=== PATIENT | male | born 1960 | race Caucasian/White ===

== ENCOUNTER 2019-03-26 17:45 | Emergency (ER) | payer OTHER ==
[2019-03-26 18:30] VITALS: TEMP 98.2
--- NOTE | 2019-03-26 19:47 | ED ---
General Adult HPI - General Chief complaint: Back Pain/Injury Stated complaint: LEG AND FEET PAIN Time Seen by Provider: 03/26/19 19:14 Source: patient Mode of arrival: ambulatory Limitations: physical limitation - History of Present Illness Initial comments: Dictation was produced using [employer] dictation software. please excuse any gra mmatical, word or spelling errors. Chief Complaint: 58-year-old male presents with 6 months of back pain. History of Present Illness: 58-year-old male with past medical history of chronic back pain. He presents today with worsening back pain. Patient has been having back pain proximally 6 months. He states he is on his back. Those by his primary care physician. States that he had an MRI that showed severe degenerative changes. Patient reports that he could have pain into the e mergency department today. Patient had his pain medications can His PCP. He reports that instead he has been drinking a fifth of alcohol daily to help with the pain. States since he had alcohol today. Patient states the pain radiates from the back to bilateral lower mid posterior knee area. Reports that he can't function because of the pain. The ROS documented in this emergency department record has been reviewed and confirmed by me. Those systems with pertinent positive or negative responses have been documented in the HPI. All other systems are other negative and/or noncontributory. PHYSICAL EXAM: General Impression: Alert and oriented x3, not in acute distress HEENT: Normocephalic atraumatic, extra-ocular movements intact, pupils equal and reactive to light bilaterally, mucous membranes moist. Cardiovascular: Heart regular rate and rhythm, S1&S2 audible, no murmurs, rubs or gallops Chest: Lungs clear to auscultation bilaterally, no rhonchi, no wheeze, no rales Abdomen: Bowel sounds present, abdomen soft, non-tender, non-distended, no organomegaly Musculoskeletal: Pulses present and equal in all extremities, no peripheral edema Motor: no focal deficits noted Neurological: CN II-XII grossly intact, no focal motor or sensory deficits noted Skin: Intact with no visualized rashes Psych: Normal affect and mood ED course: 58-year-old male presents with acute on chronic back pain. Patient is daily EtOH drinker. Signs upon arrival shows heart rate of 1:15, worse vital signs within normal limits. Laboratory evaluation obtained. Patient has mild leukocytosis of 14.2. Patient's potassium 5.8. Patient told that his potassium is slightly elevated there is concern that this is a lab error however there is no comment made on it. Nonetheless patient given oral hydration. Patient is ambulatory at baseline with his walker. Spinal x-rays were performed showing no acute processes. There is findings of generalized spine disease. Pending urine studies. Patient otherwise feels at baseline. His pain is controlled. Chair decision making was made with patient. He is agreeable for discharge with outpatient referral to our local spine surgeon Dr. Martinez. Return parameters discussed. Patient clear for discharge. - Related Data Home Medications Medication Instructions Recorded Confirmed Furosemide [Lasix] 40 mg PO DAILY 03/26/19 03/26/19 HYDROcodone/APAP 10-325MG [[place] 1 tab PO BID 03/26/19 03/26/19 10-325] Lisinopril-Hctz 20-25 mg 1 tab PO DAILY 03/26/19 03/26/19 [Zestoretic 20-25] Pantoprazole [Protonix] 40 mg PO DAILY 03/26/19 03/26/19 Potassium Chloride ER [K-Dur 10] 10 meq PO DAILY 03/26/19 03/26/19 amLODIPine [Norvasc] 5 mg PO DAILY@1400 03/26/19 03/26/19 Allergies Allergy/AdvReac Type Severity Reaction Status Date / Time No Known Allergies Allergy Verified 03/26/19 19:02 Review of Systems ROS Statement: Those systems with pertinent positive or pertinent negative responses have been documented in the HPI. ROS Other: All systems not noted in ROS Statement are negative. Past Medical History Past Medical History: Hypertension Past Surgical History: No Surgical Hx Reported Past Psychological History: No Psychological Hx Reported Smoking Status: Current every day smoker Past Alcohol Use History: Daily Past Drug Use History: None Reported General Exam Limitations: physical limitation Course Vital Signs 03/26/19 03/26/19 18:26 21:00 Temperature 98.2 F Pulse Rate 115 H 67 Respiratory 16 18 Rate Blood Pressure 137/83 169/97 O2 Sat by Pulse 93 L 99 Oximetry Medical Decision Making - Lab Data Result diagrams: 03/26/19 20:54 03/26/19 20:14 Lab Results 03/26/19 03/26/19 Range/Units 20:14 20:54 WBC 14.2 H (3.8-10.6) k/uL RBC 4.36 (4.30-5.90) m/uL Hgb 14.0 (13.0-17.5) gm/dL Hct 42.6 (39.0-53.0) % MCV 97.9 (80.0-100.0) fL MCH 32.1 (25.0-35.0) pg MCHC 32.8 (31.0-37.0) g/dL RDW 13.7 (11.5-15.5) % Plt Count 292 (150-450) k/uL Neutrophils % 74 % Lymphocytes % 15 % Monocytes % 5 % Eosinophils % 3 % Basophils % 0 % Neutrophils # 10.6 H (1.3-7.7) k/uL Lymphocytes # 2.2 (1.0-4.8) k/uL Monocytes # 0.8 (0-1.0) k/uL Eosinophils # 0.4 (0-0.7) k/uL Basophils # 0.1 (0-0.2) k/uL Sodium 135 L (137-145) mmol/L Potassium 5.8 H (3.5-5.1) mmol/L Chloride 98 (98-107) mmol/L Carbon Dioxide 29 (22-30) mmol/L Anion Gap 8 mmol/L BUN 26 H (9-20) mg/dL Creatinine 0.66 (0.66-1.25) mg/dL Est GFR (CKD-EPI)AfAm >90 (>60 ml/min/1.73 sqM) Est GFR (CKD-EPI)NonAf >90 (>60 ml/min/1.73 sqM) Glucose 114 H (74-99) mg/dL Calcium 9.5 (8.4-10.2) mg/dL Magnesium 1.9 (1.6-2.3) mg/dL Serum Alcohol 31 mg/dL Disposition Clinical Impression: Mechanical back pain Disposition: HOME SELF-CARE Condition: Good Instructions (If sedation given, give patient instructions): Acute Low Back Pain (ED) Is patient prescribed a controlled substance at d/c from ED?: No Referrals: Seven Martinez DO [Doctor of Osteopathic Medicine] - 1-2 days Time of Disposition: 21:51
--- NOTE | 2019-03-26 20:14 | XR ---
EXAMINATION TYPE: XR lumbar spine 2 or 3V DATE OF EXAM: 03/26/2019 COMPARISON: NONE HISTORY: Back pain TECHNIQUE: 3 views FINDINGS: Vertebra have normal alignment. There is narrowing of disc spaces from L3 to S1 with mild s purring. There is vacuum disc. There is no compression fracture. Posterior elements are intact. Sacro iliac joints are intact. IMPRESSION: Multilevel spondylotic changes. No fracture.
[2019-03-26 20:31] LABS: Alcohol 31 mg/dL; Anion Gap 8 mmol/L; Blood Urea Nitrogen 26 mg/dL (9-20); Calcium 9.5 mg/dL (8.4-10.2); Carbon Dioxide 29 mmol/L (22-30); Chloride 98 mmol/L (98-107); Glucose 114 mg/dL (74-99); Magnesium 1.9 mg/dL (1.6-2.3); Potassium 5.8 mmol/L (3.5-5.1); Sodium 135 mmol/L (137-145)
[2019-03-26 20:59] LABS: Basophils # (A) 0.1 k/uL (0-0.2); Basophils % (A) 0 %; Eosinophils # (A) 0.4 k/uL (0-0.7); Eosinophils % (A) 3 %; HCT 42.6 % (39.0-53.0); Lymphocytes # (A) 2.2 k/uL (1.0-4.8); Lymphocytes % (A) 15 %; MCH 32.1 pg (25.0-35.0); MCHC 32.8 g/dL (31.0-37.0); MCV 97.9 fL (80.0-100.0); Mean Platelet Volume 7.2; Monocytes # (A) 0.8 k/uL (0-1.0); Monocytes % (A) 5 %; Neutrophils # (A) 10.6 k/uL (1.3-7.7); Neutrophils % (A) 74 %; Platelet Count 292 k/uL (150-450); RBC 4.36 m/uL (4.30-5.90); RDW 13.7 % (11.5-15.5); WBC 14.2 k/uL (3.8-10.6)
[2019-03-26 21:25] VITALS: BP 169/97; PULSE 67; RESP 18
[2019-03-26 21:55] LABS: Appearance,Urine Clear (Clear); Bilirubin,Urine Negative (Negative); Blood,Urine Negative (Negative); Color,Urine Yellow; Glucose,Urine (UA) Negative (Negative); Ketones,Urine Negative (Negative); Leukocyte Esterase,Urine Negative (Negative); Mucus,Urine Rare /hpf; Nitrite,Urine Negative (Negative); Protein,Urine 1+ (Negative); RBC,Urine <1 /hpf (0-5); Specific Gravity,Urine 1.031 (1.001-1.035); Squamous Epithelial Cell,Urine <1 /hpf (0-4); Urobilinogen,Urine <2.0 mg/dL (<2.0); WBC,Urine 1 /hpf (0-5)
== END 2019-03-26 22:20 | disposition home or self-care (01) ==
LOC: EC 17:45
DX: M54.9 Dorsalgia, unspecified (principal); I10 Essential (primary) hypertension; F17.200 Nicotine dependence, unspecified, uncomplicated; Z79.891 Long term (current) use of opiate analgesic; Z79.899 Other long term (current) drug therapy
CPT/HCPCS: 36415; 80048; 83735; 85025; 81001; 72100; 99283; G0480; 80320

== ENCOUNTER 2020-03-25 20:28 | Observation (INO) | payer OTHER ==
--- NOTE | 2020-03-25 20:38 | ED ---
General Adult HPI - General Stated complaint: Chest Pain Time Seen by Provider: 03/25/20 20:30 Source: patient, RN notes reviewed Mode of arrival: EMS Limitations: no limitations - History of Present Illness Initial comments: Patient is a pleasant 59-year-old male presenting to the emergency department complaining of fatigue and dyspnea. Symptoms have progressed over the past 3-4 days. Patient has been sleeping for majority of the days. Patient stopped all of his heart medications a couple of weeks ago. Patient is having mild chest discomfort. Patient is having palpitations. Patient does have history of atrial fibrillation. No leg pain or leg swelling. - Related Data Home Medications Medication Instructions Recorded Confirmed Furosemide [Lasix] 40 mg PO DAILY 03/26/19 03/26/19 HYDROcodone/APAP 10-325MG [[place] 1 tab PO BID 03/26/19 03/26/19 10-325] Lisinopril-Hctz 20-25 mg 1 tab PO DAILY 03/26/19 03/26/19 [Zestoretic 20-25] Pantoprazole [Protonix] 40 mg PO DAILY 03/26/19 03/26/19 Potassium Chloride ER [K-Dur 10] 10 meq PO DAILY 03/26/19 03/26/19 amLODIPine [Norvasc] 5 mg PO DAILY@1400 03/26/19 03/26/19 Allergies Allergy/AdvReac Type Severity Reaction Status Date / Time No Known Allergies Allergy Verified 03/25/20 20:39 Review of Systems ROS Statement: Those systems with pertinent positive or pertinent negative responses have been documented in the HPI. ROS Other: All systems not noted in ROS Statement are negative. Constitutional: Denies: fever Eyes: Denies: eye pain ENT: Denies: ear pain Respiratory: Reports: dyspnea. Denies: cough Cardiovascular: Reports: chest pain, palpitations Endocrine: Reports: fatigue Gastrointestinal: Denies: abdominal pain Genitourinary: Denies: dysuria Musculoskeletal: Denies: back pain Skin: Denies: rash Neurological: Denies: weakness Past Medical History Past Medical History: Hypertension Past Surgical History: No Surgical Hx Reported Past Psychological History: No Psychological Hx Reported Smoking Status: Current every day smoker Past Alcohol Use History: Daily Past Drug Use History: None Reported General Exam Limitations: no limitations General appearance: alert, in no apparent distress Head exam: Present: normocephalic Eye exam: Present: normal appearance Neck exam: Present: normal inspection Respiratory exam: Present: normal lung sounds bilaterally. Absent: chest wall tenderness Cardiovascular Exam: Present: tachycardia, irregular rhythm Expanded Peripheral pulses: 2+: Radial (R), Radial (L), Dorsalis Pedis (R), Dorsalis Pedis (L) GI/Abdominal exam: Present: soft. Absent: tenderness Extremities exam: Present: normal inspection. Absent: pedal edema, calf tenderness Neurological exam: Present: alert Psychiatric exam: Present: normal affect, normal mood Skin exam: Present: normal color Course Vital Signs 03/25/20 20:29 Temperature 98.4 F Pulse Rate 105 H Respiratory 19 Rate Blood Pressure 155/112 O2 Sat by Pulse 98 Oximetry - Reevaluation(s) Reevaluation #1: 03/25/20 20:45 Patient states he can't be on blood thinners secondary to history of bleeding problems. 03/25/20 22:06 Repeat EKG shows A. fib with rate of 96. QRS 90. QT 352. QTC 444. Normal axis. Normal QRS. No acute ST change. EKG Findings - EKG Comments: EKG Findings:: A. fib with rate of 113. QRS 92. QT 344. QTC 471. Normal axis. Normal QRS. Nonspecific T waves. Medical Decision Making - Medical Decision Making Patient reevaluated and updated. Dr. Reza has been paged for admission covering for hospital call. - Lab Data Result diagrams: 03/25/20 20:49 03/25/20 20:49 Lab Results 03/25/20 03/25/20 03/25/20 Range/Units 20:49 20:49 20:49 WBC 12.3 H (3.8-10.6) k/uL RBC 4.49 (4.30-5.90) m/uL Hgb 13.1 (13.0-17.5) gm/dL Hct 42.0 (39.0-53.0) % MCV 93.5 (80.0-100.0) fL MCH 29.1 (25.0-35.0) pg MCHC 31.1 (31.0-37.0) g/dL RDW 16.5 H (11.5-15.5) % Plt Count 291 (150-450) k/uL Neutrophils % 74 % Lymphocytes % 16 % Monocytes % 6 % Eosinophils % 2 % Basophils % 0 % Neutrophils # 9.1 H (1.3-7.7) k/uL Lymphocytes # 1.9 (1.0-4.8) k/uL Monocytes # 0.7 (0-1.0) k/uL Eosinophils # 0.3 (0-0.7) k/uL Basophils # 0.1 (0-0.2) k/uL Anisocytosis Slight PT 10.6 (9.0-12.0) sec INR 1.0 (<1.2) APTT 24.2 (22.0-30.0) sec D-Dimer 0.63 H (<0.60) mg/L FEU Sodium 135 L (137-145) mmol/L Potassium 4.2 (3.5-5.1) mmol/L Chloride 105 (98-107) mmol/L Carbon Dioxide 23 (22-30) mmol/L Anion Gap 7 mmol/L BUN 17 (9-20) mg/dL Creatinine 0.67 (0.66-1.25) mg/dL Est GFR (CKD-EPI)AfAm >90 (>60 ml/min/1.73 sqM) Est GFR (CKD-EPI)NonAf >90 (>60 ml/min/1.73 sqM) Glucose 99 (74-99) mg/dL Calcium 9.6 (8.4-10.2) mg/dL Total Bilirubin 0.5 (0.2-1.3) mg/dL AST 24 (17-59) U/L ALT 12 (4-49) U/L Alkaline Phosphatase 86 (38-126) U/L Troponin I (0.000-0.034) ng/mL NT-Pro-B Natriuret Pep pg/mL Total Protein 6.9 (6.3-8.2) g/dL Albumin 4.0 (3.5-5.0) g/dL 03/25/20 03/25/20 Range/Units 20:49 20:49 WBC (3.8-10.6) k/uL RBC (4.30-5.90) m/uL Hgb (13.0-17.5) gm/dL Hct (39.0-53.0) % MCV (80.0-100.0) fL MCH (25.0-35.0) pg MCHC (31.0-37.0) g/dL RDW (11.5-15.5) % Plt Count (150-450) k/uL Neutrophils % % Lymphocytes % % Monocytes % % Eosinophils % % Basophils % % Neutrophils # (1.3-7.7) k/uL Lymphocytes # (1.0-4.8) k/uL Monocytes # (0-1.0) k/uL Eosinophils # (0-0.7) k/uL Basophils # (0-0.2) k/uL Anisocytosis PT (9.0-12.0) sec INR (<1.2) APTT (22.0-30.0) sec D-Dimer (<0.60) mg/L FEU Sodium (137-145) mmol/L Potassium (3.5-5.1) mmol/L Chloride (98-107) mmol/L Carbon Dioxide (22-30) mmol/L Anion Gap mmol/L BUN (9-20) mg/dL Creatinine (0.66-1.25) mg/dL Est GFR (CKD-EPI)AfAm (>60 ml/min/1.73 sqM) Est GFR (CKD-EPI)NonAf (>60 ml/min/1.73 sqM) Glucose (74-99) mg/dL Calcium (8.4-10.2) mg/dL Total Bilirubin (0.2-1.3) mg/dL AST (17-59) U/L ALT (4-49) U/L Alkaline Phosphatase (38-126) U/L Troponin I <0.012 (0.000-0.034) ng/mL NT-Pro-B Natriuret Pep 736 pg/mL Total Protein (6.3-8.2) g/dL Albumin (3.5-5.0) g/dL - Radiology Data Radiology results: report reviewed (Computed tomography scan of the chest shows no evidence of pulmonary embolism. Moderate emphysema. Possible bronchitis. Nodular density lingula. Nodularity left adrenal gland.), image reviewed (Chest x-ray has subtle multifocal bibasilar opacities. Underlying COPD) Disposition Clinical Impression: Dyspnea Disposition: ADMITTED IP TO THIS HOSP Is patient prescribed a controlled substance at d/c from ED?: No Referrals: Zackary Krause DO [Primary Care Provider] - 1-2 days Decision Time: 22:07
[2020-03-25 21:00] LABS: Anisocytosis Slight; Basophils # (A) 0.1 k/uL (0-0.2); Basophils % (A) 0 %; Eosinophils # (A) 0.3 k/uL (0-0.7); Eosinophils % (A) 2 %; HGB 13.1 gm/dL (13.0-17.5); Lymphocytes # (A) 1.9 k/uL (1.0-4.8); Lymphocytes % (A) 16 %; MCH 29.1 pg (25.0-35.0); MCHC 31.1 g/dL (31.0-37.0); MCV 93.5 fL (80.0-100.0); Mean Platelet Volume 8.2; Monocytes # (A) 0.7 k/uL (0-1.0); Monocytes % (A) 6 %; Neutrophils # (A) 9.1 k/uL (1.3-7.7); Neutrophils % (A) 74 %; Platelet Count 291 k/uL (150-450); RBC 4.49 m/uL (4.30-5.90); RDW 16.5 % (11.5-15.5); WBC 12.3 k/uL (3.8-10.6)
--- NOTE | 2020-03-25 21:06 | XR ---
EXAMINATION TYPE: XR chest 2V DATE OF EXAM: 03/25/2020 COMPARISON: NONE HISTORY: Difficulty breathing TECHNIQUE: Frontal and lateral views of the chest are obtained. FINDINGS: Subtle patchy bilateral opacities are seen in the lower lungs. Pulmonary hyperinflation wi th flattening of the diaphragms on the lateral view is [employer] of underlying COPD. Mild degene rative changes spine. Cardiomediastinal silhouette is within normal limits. IMPRESSION: Subtle multifocal bibasilar opacities favoring multifocal pneumonia versus atelectasis. Underlying COPD.
[2020-03-25 21:10] LABS: ALT 12 U/L (4-49); AST 24 U/L (17-59); African American GFR (CKD) >90 (>60 ml/min/1.73 sqM); Alkaline Phosphatase 86 U/L (38-126); Anion Gap 7 mmol/L; Blood Urea Nitrogen 17 mg/dL (9-20); Calcium 9.6 mg/dL (8.4-10.2); Carbon Dioxide 23 mmol/L (22-30); Chloride 105 mmol/L (98-107); Glucose 99 mg/dL (74-99); Non-African American GFR(CKD) >90 (>60 ml/min/1.73 sqM); Potassium 4.2 mmol/L (3.5-5.1); Sodium 135 mmol/L (137-145); Total Bilirubin 0.5 mg/dL (0.2-1.3); Total Protein 6.9 g/dL (6.3-8.2)
[2020-03-25 21:19] LABS: Partial Thromboplastin Time 24.2 sec (22.0-30.0); Prothrombin Time 10.6 sec (9.0-12.0)
[2020-03-25 21:21] LABS: D-Dimer 0.63 mg/L FEU (<0.60)
--- NOTE | 2020-03-25 22:01 | CT ---
EXAMINATION TYPE: CT angio chest DATE OF EXAM: 03/25/2020 COMPARISON: NONE HISTORY: Dyspnea. CT DLP: 707.9 mGycm. Automated Exposure Control for Dose Reduction was Utilized. CONTRAST: CTA scan of the thorax is performed with IV Contrast, patient injected with 100 mL of Isovue 370, pul monary embolism protocol. MIP Images are created on CT scanner and reviewed. FINDINGS: LUNGS: Moderate centrilobular emphysematous change of the lungs. Nodular density in the lingula measu res 9 mm however appears to be fat attenuation on soft tissue window and likely represents scarring. Minimal bibasilar subsegmental dependent atelectasis. Diffuse mild peribronchial cuffing. The lungs a re grossly clear, there is no concerning parenchymal mass or nodule identified. There is no pleural effusion or pneumothorax seen. The tracheobronchial tree is patent. MEDIASTINUM: There is satisfactory enhancement of the pulmonary artery and its branches, there is no CT evidence for pulmonary embolism. There are no greater than 1 cm hilar or mediastinal lymph nodes. No cardiomegaly or pericardial effusion is seen. OTHER: Bilateral nonspecific perinephric fat stranding. Hypoattenuated too small to accurately charac terize subcentimeter left renal lesion is seen in addition to a 2.2 cm left renal cyst. Nodularity of the left adrenal gland is nonspecific. Facet degenerative changes of the shoulders. Mild degenerativ e change of the spine. IMPRESSION: 1. No evidence of pulmonary embolus. 2. Moderate centrilobular emphysema. Diffuse mild peribronchial cuffing can be seen in reactive or in fectious airway disease such as bronchitis. 9 mm nodular density in the lingula is favored to represe nt scarring given its low attenuation on soft tissue algorithm however short-term follow-up is recomm ended in 3 months to ensure stability. 3. Nonspecific nodularity of the left adrenal gland. CT adrenal mass protocol could be considered on a nonemergent basis for further follow-up. 4. Advanced degenerative changes of the shoulders.
[2020-03-25] MEDS ORDERED: methylPREDNISolone SOD SUCCI 125 MG/2 ML VIAL IV STA (22:07)
[2020-03-25] MEDS ORDERED: IPRATROPIUM-ALBUTEROL 3 ML NEB INHALATION PRN (22:07)
[2020-03-25] MEDS ORDERED: ASPIRIN 81 MG PO STA (22:10)
[2020-03-25] MEDS ORDERED: NITROGLYCERIN SL TABS 0.4 MG TAB SUBLINGUAL PRN (22:10)
[2020-03-25 22:24] LABS: C Reactive Protein <5.0 mg/L (<10.0); LDH 292 U/L (313-618); Magnesium 1.7 mg/dL (1.6-2.3)
[2020-03-25] MEDS ORDERED: LISINOPRIL 10 MG TAB PO STA (22:29)
[2020-03-26] MEDS: methylPREDNISolone SOD SUCCI 125 MG/2 ML VIAL IV SCH ×2 (00:05→06:20)
[2020-03-26 04:20] LABS: Cholesterol 155 mg/dL (<200); HDL Cholesterol 59 mg/dL (40-60); LDL Cholesterol,Calculated 79 mg/dL (0-99); Triglycerides 86 mg/dL (<150)
[2020-03-26] MEDS: IPRATROPIUM-ALBUTEROL 3 ML NEB INHALATION SCH ×4 (08:09→19:43)
--- NOTE | 2020-03-26 10:04 | ECHOF ---
Referral Reason:dyspnea MEASUREMENTS -------- HEIGHT: 180.3 cm WEIGHT: 79.8 kg BP: 128/84 RVIDd: 3.2 cm (< 3.3) IVSd: 1.6 cm (0.6 - 1.1) LVIDd: 3.9 cm (3.9 - 5.3) LVPWd: 1.7 cm (0.6 - 1.1) IVSs: 1.8 cm LVIDs: 2.5 cm LVPWs: 2.3 cm LAESV Index (A-L): 39.18 ml/m Ao Diam: 3.1 cm (2.0 - 3.7) AV Cusp: 1.4 cm (1.5 - 2.6) LA Diam: 3.2 cm (2.7 - 3.8) MV EXCURSION: 12.148 mm (> 18.000) MV EF SLOPE: 77 mm/s (70 - 150) EPSS: 0.7 cm AV maxP.66 mmHg AV meanP.06 mmHg RAP: 5.00 mmHg RVSP: 9.20 mmHg FINDINGS -------- Atrial fibrillation. This was a technically good study. The left ventricular size is normal. There is moderate concentric left ventricular hypertrophy. O verall left ventricular systolic function is normal with, an EF between 55 - 60 %. Left ventricular fillimg pressure cannot be estimated due to Atrial fibrillation. The right ventricle is normal in size. The left atrial size is normal. The right atrial size is normal. Aortic valve is trileaflet and is mildly thickened. The mitral valve is normal. The mitral valve leaflets are mildly thickened. Mild mitral regurgita tion is present. The tricuspid valve appears structurally normal. Mild tricuspid regurgitation present. Right vent ricular systolic pressure is normal at < 35 mmHg. There is no pulmonic regurgitation present. The aortic root size is normal. Normal inferior vena cava with normal inspiratory collapse consistent with estimated right atrial pre ssure of 5 mmHg. There is no pericardial effusion. CONCLUSIONS -------- 1. Atrial fibrillation. 2. This was a technically good study. 3. The left ventricular size is normal. 4. There is moderate concentric left ventricular hypertrophy. 5. Overall left ventricular systolic function is normal with, an EF between 55 - 60 %. 6. Left ventricular fillimg pressure cannot be estimated due to Atrial fibrillation. 7. The right ventricle is normal in size. 8. The left atrial size is normal. 9. The right atrial size is normal. 10. Aortic valve is trileaflet and is mildly thickened. 11. The mitral valve is normal. 12. The mitral valve leaflets are mildly thickened. 13. Mild mitral regurgitation is present. 14. The tricuspid valve appears structurally normal. 15. Mild tricuspid regurgitation present. 16. Right ventricular systolic pressure is normal at < 35 mmHg. 17. There is no pulmonic regurgitation present. 18. The aortic root size is normal. 19. Normal inferior vena cava with normal inspiratory collapse consistent with estimated right atrial pressure of 5 mmHg. 20. There is no pericardial effusion. [employer] OPERATOR: Kerry Johnson RDCS
[2020-03-26] MEDS ORDERED: NICOTINE 7MG/24HR PATCH TRANSDERM STA (10:42)
--- NOTE | 2020-03-26 11:20 | P.HPIM ---
History of Present Illness 59-year-old male came in with generalized fatigue and was coming of shortness of her denied any orthopnea proximal nocturnal dyspnea patient is comparing of cough without any production patient and he is to smoke has cut down smoking lately. Patient does have history of atrial fibrillation stopped his metoprolol because he believed metoprolol causes a stomach problems patient has a GI bleed posterior orthopedic surgery about 3 months ago. Patient doesn't think anticoagulation because of his GI bleed due to peptic ulcer disease. Patient is still in A. fib I'm starting him on metoprolol 25 twice a day counseling him regarding use of metoprolol and anticoagulation. Patient was apparently wheezing yesterday wheezing complete resolved at this time IV steroids and risk and urine patient was started on inhaled steroids. Patient is still in A. fib. Had a normal echocardiogram his Surinder-Vasc score is 0. Anti-correlation to bloom will be left cardiology. Patient had significant weight loss in last few months. CT angios the chest was done because of mildly elevated d-dimer which showed some pulmonary nodules because of which neurology was consulted and patient will follow with oncology as an outpatient for these pulmonary nodules and possible biopsy as an outpatient. Review of Systems REVIEW OF SYSTEMS: CONSTITUTIONAL: No fever. HEENT: No recent visual problems or hearing problems. Denied any sore throat. CARDIOVASCULAR: No chest pain, orthopnea, PND, no palpitations, no syncope. PULMONARY: no hemoptysis. GASTROINTESTINAL: No diarrhea, no nausea, no vomiting, no abdominal pain. NEUROLOGICAL: No headaches, no weakness, no numbness. HEMATOLOGICAL: Denies any bleeding or petechiae. GENITOURINARY: Denies any burning micturition, frequency, or urgency. MUSCULOSKELETAL/RHEUMATOLOGICAL: Denies any joint pain, swelling, or any muscle pain. ENDOCRINE: Denies any polyuria or polydipsia. The rest of the 14-point review of systems is negative. Past Medical History Past Medical History: Atrial Fibrillation, Hypertension Additional Past Medical History / Comment(s): gastric ulcers, GI bleed History of Any Multi-Drug Resistant Organisms: None Reported Past Surgical History: No Surgical Hx Reported Additional Past Surgical History / Comment(s): bilateral hip replacement Past Psychological History: No Psychological Hx Reported Smoking Status: Current every day smoker Past Alcohol Use History: Daily Past Drug Use History: None Reported Medications and Allergies Home Medications Medication Instructions Recorded Confirmed Type Pantoprazole [Protonix] 40 mg PO BID 03/26/19 03/25/20 History Allergies Allergy/AdvReac Type Severity Reaction Status Date / Time No Known Allergies Allergy Verified 03/25/20 22:11 Physical Exam Vitals: Vital Signs Temp Pulse Pulse Resp BP BP Pulse Ox 03/26/20 09:00 97.5 F L 107 H 16 102/79 95 03/26/20 08:28 100 03/26/20 08:09 104 H 03/26/20 03:53 98.1 F 95 18 128/84 95 03/26/20 00:10 98.4 F 102 H 18 145/105 96 03/25/20 23:52 97.4 F L 03/25/20 23:17 98 15 141/103 97 03/25/20 23:16 91 18 147/105 98 03/25/20 22:52 105 H 18 150/105 98 03/25/20 22:34 108 H 18 152/110 97 03/25/20 22:09 102 H 18 163/107 97 03/25/20 20:29 98.4 F 105 H 19 155/112 98 Intake and Output 03/25/20 03/26/20 03/26/20 22:59 06:59 14:59 Intake Total 120 Output Total 800 Balance -800 120 Intake: Oral 120 Output: Urine 800 Other: Voiding Method Toilet Toilet Weight 81.647 kg 80.1 kg PHYSICAL EXAMINATION: GENERAL: The patient is alert and oriented x3, not in any acute distress. Well developed, well nourished. HEENT: Pupils are round and equally reacting to light. EOMI. No scleral icterus. No conjunctival pallor. Normocephalic, atraumatic. No pharyngeal erythema. No thyromegaly. CARDIOVASCULAR: S1 and S2 present. No murmurs, rubs, or gallops. Cardiac irregularly irregular rhythm PULMONARY: Chest is clear to auscultation, no wheezing or crackles. ABDOMEN: Soft, nontender, nondistended, normoactive bowel sounds. No palpable organomegaly. MUSCULOSKELETAL: No joint swelling or deformity. EXTREMITIES: No cyanosis, clubbing, or pedal edema. NEUROLOGICAL: Gross neurological examination did not reveal any focal deficits. SKIN: No rashes. Results CBC & Chem 7: 03/25/20 20:49 03/25/20 20:49 Labs: Abnormal Lab Results - Last 24 Hours (Table) 03/25/20 03/25/20 03/25/20 Range/Units 20:49 20:49 20:49 WBC 12.3 H (3.8-10.6) k/uL RDW 16.5 H (11.5-15.5) % Neutrophils # 9.1 H (1.3-7.7) k/uL D-Dimer 0.63 H (<0.60) mg/L FEU Sodium 135 L (137-145) mmol/L Lactate Dehydrogenase (313-618) U/L 03/25/20 Range/Units 22:00 WBC (3.8-10.6) k/uL RDW (11.5-15.5) % Neutrophils # (1.3-7.7) k/uL D-Dimer (<0.60) mg/L FEU Sodium (137-145) mmol/L Lactate Dehydrogenase 292 L (313-618) U/L Assessment and Plan Plan: 1 COPD exacerbation short of breath improved I do not believe patient will need systems steroids patient will be started on inhaled steroids, continue with inhalational treatments no pneumonia on the CAT scan. Will not require any antibiotics -Atrial fibrillation with rapid ventricular rate patient will be started back on metoprolol anticoagulation as per cardiology since he is in A. fib he may need anticoagulation in spite of his chads score being 1. Patient had a peptic ulcer disease 3 months ago by now that ulcer should have been healed. --Severe osteoarthritis bilateral hip replacement -Pulmonary nodules patient is high risk for lung cancer and patient had significant weight loss will follow up with neurology as an outpatient for biopsy. -Continue nicotine use: Counseling was provided For osteoarthritis multiple joints and patient presently had shoulder pain follows up with orthopedic surgery as an outpatient
--- NOTE | 2020-03-26 11:27 | P.CRDCN ---
History of Present Illness Consult date: 03/26/20 Requesting physician: Sadia Reza Consult reason: atrial fibrillation Chief complaint: weakness, fatigue, mild shortness of breath History of present illness: this is a pleasant 59-year-old gentleman who has a known history of hypertension, he also states that he was diagnosed with atrial fibrillation in August at which time he was at [facility]. Patient had been initiated on oral anticoagulation, but he states that he had a significant drop in hemoglobin, underwent an EGD which discovered a bleeding ulcer and for this reason the anticoagulation at that point in time had been discontinued and he has not been taking it since. He also states that he had been initiated on Lopressor which she stopped, he felt that it may be contributing to his tiredness and weakness.he is a smoker, continues to smoke. Also has history of bilateral hip replacement and states that both of his shoulders are in need of surgery.Presents to the hospital with symptoms of progressively worsening fatigue and tiredness, he also states that he's noticed more shortness of breath than usual. Patient states he's been quite depressed, he has lost weight recently he lives with his daughter at present.chest x-ray on presentation here showed subtle multifocal by basilar obesities, favoring a multifocal pneumonia versus atelectasis. Underlying COPD.CTA of the chest was performed which was negative for pulmonary embolism, showed moderate emphysema,9 mm nodular density in the lingula, nonspecific nodularity of the left adrenal gland. CT adrenal mass protocol could be considered. Advanced degenerative changes of the shoulders. Past Medical History Past Medical History: Atrial Fibrillation, Hypertension Additional Past Medical History / Comment(s): gastric ulcers, GI bleed History of Any Multi-Drug Resistant Organisms: None Reported Past Surgical History: No Surgical Hx Reported Additional Past Surgical History / Comment(s): bilateral hip replacement Past Psychological History: No Psychological Hx Reported Smoking Status: Current every day smoker Past Alcohol Use History: Daily Past Drug Use History: None Reported Medications and Allergies Home Medications Medication Instructions Recorded Confirmed Type Pantoprazole [Protonix] 40 mg PO BID 03/26/19 03/25/20 History Allergies Allergy/AdvReac Type Severity Reaction Status Date / Time No Known Allergies Allergy Verified 03/25/20 22:11 Physical Exam Vitals: Vital Signs Temp Pulse Pulse Resp BP BP Pulse Ox 03/26/20 09:00 97.5 F L 107 H 16 102/79 95 03/26/20 08:28 100 03/26/20 08:09 104 H 03/26/20 03:53 98.1 F 95 18 128/84 95 03/26/20 00:10 98.4 F 102 H 18 145/105 96 03/25/20 23:52 97.4 F L 03/25/20 23:17 98 15 141/103 97 03/25/20 23:16 91 18 147/105 98 03/25/20 22:52 105 H 18 150/105 98 03/25/20 22:34 108 H 18 152/110 97 03/25/20 22:09 102 H 18 163/107 97 03/25/20 20:29 98.4 F 105 H 19 155/112 98 Intake and Output 03/25/20 03/26/20 03/26/20 22:59 06:59 14:59 Intake Total 120 Output Total 800 Balance -800 120 Intake: Oral 120 Output: Urine 800 Other: Voiding Method Toilet Toilet Weight 81.647 kg 80.1 kg PHYSICAL EXAMINATION: GENERAL:59-year-old gentleman in no acute distress at the time of my examination HEENT: Head is atraumatic, normocephalic. Pupils equal, round. Sclera anicteric. Conjunctiva are clear. Mucous membranes of the mouth are moist. Neck is supple. There is no elevated jugular venous pressure.no carotid bruit is heard. HEART EXAMINATION:heart S1 and S2 irregularly irregular CHEST EXAMINATION:lungs reveal overall he decreased air exchange with some fine expiratory wheezing. Fine crackles at the bases. ABDOMEN: [ Soft, nontender. Bowel sounds are heard. No organomegaly noted]. EXTREMITIES:[ 2+ peripheral pulses with no evidence of peripheral edema and no calf tenderness noted]. NEUROLOGIC [patient is awake, alert and oriented 3 . Results 03/25/20 20:49 03/25/20 20:49 Cardiac Enzymes 03/25/20 03/25/20 03/25/20 Range/Units 20:49 20:49 22:00 AST 24 (17-59) U/L Lactate Dehydrogenase 292 L (313-618) U/L Troponin I <0.012 (0.000-0.034) ng/mL 03/26/20 03/26/20 Range/Units 03:16 08:40 AST (17-59) U/L Lactate Dehydrogenase (313-618) U/L Troponin I <0.012 <0.012 (0.000-0.034) ng/mL Coagulation 03/25/20 Range/Units 20:49 PT 10.6 (9.0-12.0) sec APTT 24.2 (22.0-30.0) sec Lipids 03/26/20 Range/Units 03:16 Triglycerides 86 (<150) mg/dL Cholesterol 155 (<200) mg/dL HDL Cholesterol 59 (40-60) mg/dL CBC 03/25/20 Range/Units 20:49 WBC 12.3 H (3.8-10.6) k/uL RBC 4.49 (4.30-5.90) m/uL Hgb 13.1 (13.0-17.5) gm/dL Hct 42.0 (39.0-53.0) % Plt Count 291 (150-450) k/uL Comprehensive Metabolic Panel 03/25/20 Range/Units 20:49 Sodium 135 L (137-145) mmol/L Potassium 4.2 (3.5-5.1) mmol/L Chloride 105 (98-107) mmol/L Carbon Dioxide 23 (22-30) mmol/L BUN 17 (9-20) mg/dL Creatinine 0.67 (0.66-1.25) mg/dL Glucose 99 (74-99) mg/dL Calcium 9.6 (8.4-10.2) mg/dL AST 24 (17-59) U/L ALT 12 (4-49) U/L Alkaline Phosphatase 86 (38-126) U/L Total Protein 6.9 (6.3-8.2) g/dL Albumin 4.0 (3.5-5.0) g/dL Current Medications Generic Name Dose Route Start Last Admin Trade Name Freq PRN Reason Stop Dose Admin Albuterol/Ipratropium 3 ml 03/26/20 08:00 03/26/20 08:09 Duoneb 0.5 Mg-3 Mg/3 Ml Soln INHALATION 3 ml RT-QID HARITHA Administration Albuterol/Ipratropium 3 ml 03/25/20 22:07 Duoneb 0.5 Mg-3 Mg/3 Ml Soln INHALATION RT-Q4H PRN Shortness Of Breath Or Wheezing Aspirin 325 mg 03/26/20 09:00 Aspirin PO DAILY [facility] Budesonide/Formoterol Fumarate 2 puff 03/26/20 20:00 Symbicort 160-4.5 Mcg Inhaler INHALATION RT-BID [facility] Metoprolol Tartrate 25 mg 03/26/20 10:30 Lopressor PO BID HARITHA Nicotine 1 patch 03/27/20 09:00 Habitrol 7mg/24hr Patch TRANSDERM DAILY [facility] Nitroglycerin 0.4 mg 03/25/20 22:10 Nitrostat SUBLINGUAL Q5M PRN Chest Pain Pantoprazole Sodium 40 mg 03/26/20 10:30 Protonix PO BID HARITHA Sodium Chloride 10 ml 03/26/20 09:00 Saline Flush IV BID HARITHA Intake and Output 03/25/20 03/26/20 03/26/20 22:59 06:59 14:59 Intake Total 120 Output Total 800 Balance -800 120 Intake: Oral 120 Output: Urine 800 Other: Voiding Method Toilet Toilet Weight 81.647 kg 80.1 kg 03/25/20 20:49 03/25/20 20:49 EKG Interpretations (text) EKG shows atrial fibrillation with moderately rapid ventricular response Assessment and Plan Plan: assessment and plan #1 atrial fibrillation with moderately rapid ventricular response. Persistence. Initially diagnosed in August, at which time patient was started on anticoagulation, subsequently this was discontinued because of bleeding ulcer. #2 hypertension #3 nicotine dependence #4 depression #5 history of bleeding ulcer with subsequent drop in hemoglobin #6 shortness of breath, evidence of multifocal bibasilar obesity state. Possible multifocal pneumonia,CTA of the chest negative for pulmonary embolism,9 mm nodular density noted in the lingula, nonspecific nodularity in the left adrenal gland noted. Plan We will obtain an echocardiogram with Doppler study. We will also obtain records from [facility] regarding the bleeding ulcer that the patient had an with the recommendations were from GI service at that time. Our recommendation would be that the patient be on anticoagulation.we will also check a TSH level. DNP note has been reviewed, I agree with a documented findings and plan of care. Patient was seen and examined.
[2020-03-26] MEDS: PANTOPRAZOLE 40 MG TABLET PO SCH ×2 (12:02→21:29)
[2020-03-26] MEDS: ASPIRIN 325 MG TAB PO SCH (12:02)
[2020-03-26] MEDS: METOPROLOL TARTRATE 25 MG TAB PO SCH ×2 (12:02→21:29)
--- NOTE | 2020-03-26 12:20 | P.CNPUL ---
History of Present Illness Consult date: 03/26/20 Reason for consult: dyspnea History of present illness: 59-year-old male patient, with history of atrial fibrillation that was diagnosed back in August 2019 through [facility]. The patient was given appropriate treatment including oral anticoagulation. The patient stated that he had a drop in the hemoglobin accordingly and he underwent an EGD and he was found to have a bleeding ulcer and for that reason antipronation was di scontinued he was not take any form of anticoagulants. He stated that he was taken Lopressor which was also stopped. He apparently was getting fatigued and tired while taking the Lopressor. Is a chronic smoker and is known to have COPD. He came into the hospital because of worsening shortness of breath. He was found to be in atrial fibrillation. The patient's chest x-ray was consistent with COPD. CT angios on was done that showed no evidence of any pulmonary embolism. There was evidence of emphysema and addition to a 9 mm nodule in the lingula which is probably a scar rather than through malignant lesion. The patient smokes a pack of cigarettes a day. Another nonspecific lesion involving the adrenal was also seen. The patient has no significant cough sputum production or hemoptysis. No reported pleurisy. He has history of breath and hip replacement and he also has arthritis of the shoulders. His blood work revealed a hemoglobin of 13.1. Aggressive blood work and electrodes are within normal limits. LFTs are normal. Lactic acid level is within normal. D-dimer 0.6. Troponins times she has been negative. ProBNP level was 736. Review of Systems Constitutional: Denies chills, Denies fever Eyes: denies as per HPI, denies blurred vision, denies bulging eye, denies decreased vision, denies diplopia, denies discharge, denies dry eye, denies irritation, denies itching, denies pain, denies photophobia, denies loss of peripheral vision, denies loss of vision, denies tunnel vision/blind spots Ears: deny: decreased hearing, ear discharge, earache, tinnitus Ears, nose, mouth and throat: Denies headache, Denies sore throat Cardiovascular: Reports decreased exercise tolerance, Reports dyspnea on exertion Respiratory: Reports as per HPI, Reports dyspnea Gastrointestinal: Reports as per HPI Genitourinary: Reports as per HPI Musculoskeletal: Reports as per HPI Musculoskeletal: absent: ankle pain, ankle stiffness, ankle swelling, as per HPI, elbow pain, elbow stiffness, elbow swelling, foot pain, foot stiffness, foot swelling, hand pain, hand stiffness, hand swelling, hip pain, hip stiffness, hip swelling, knee pain, knee stiffness, knee swelling, shoulder pain, shoulder stiffness, shoulder swelling, wrist pain, wrist stiffness, wrist swelling Integumentary: Reports as per HPI Neurological: Reports as per HPI Psychiatric: Reports as per HPI Endocrine: Reports as per HPI Hematologic/Lymphatic: Reports as per HPI Allergic/Immunologic: Reports as per HPI Past Medical History Past Medical History: Atrial Fibrillation, Hypertension Additional Past Medical History / Comment(s): gastric ulcers, GI bleed History of Any Multi-Drug Resistant Organisms: None Reported Past Surgical History: No Surgical Hx Reported Additional Past Surgical History / Comment(s): bilateral hip replacement Past Psychological History: No Psychological Hx Reported Smoking Status: Current every day smoker Past Alcohol Use History: Daily Past Drug Use History: None Reported Medications and Allergies Home Medications Medication Instructions Recorded Confirmed Type Albuterol Inhaler [Ventolin Hfa 2 puff INHALATION RT-QID PRN #1 03/26/20 Rx Inhaler] inhaler Budesonide-Formot 160-4.5 Mcg 2 puff INHALATION RT-BID #1 inhaler 03/26/20 Rx [Symbicort 160-4.5 Mcg Inhaler] Metoprolol Tartrate [Lopressor] 25 mg PO BID #60 tab 03/26/20 Rx Pantoprazole [Protonix] 40 mg PO DAILY #0 03/26/20 03/25/20 Rx Tiotropium [place] [Spiriva] 1 cap INHALATION DAILY #1 device 03/26/20 Rx Allergies Allergy/AdvReac Type Severity Reaction Status Date / Time No Known Allergies Allergy Verified 03/25/20 22:11 Physical Exam Vitals: Vital Signs Temp Pulse Pulse Resp BP BP Pulse Ox 03/26/20 12:00 110 H 16 125/92 94 L 03/26/20 11:48 100 03/26/20 11:38 96 03/26/20 09:00 97.5 F L 107 H 16 102/79 95 03/26/20 08:28 100 03/26/20 08:09 104 H 03/26/20 03:53 98.1 F 95 18 128/84 95 03/26/20 00:10 98.4 F 102 H 18 145/105 96 03/25/20 23:52 97.4 F L 03/25/20 23:17 98 15 141/103 97 03/25/20 23:16 91 18 147/105 98 03/25/20 22:52 105 H 18 150/105 98 03/25/20 22:34 108 H 18 152/110 97 03/25/20 22:09 102 H 18 163/107 97 03/25/20 20:29 98.4 F 105 H 19 155/112 98 Intake and Output 03/25/20 03/26/20 03/26/20 22:59 06:59 14:59 Intake Total 120 Output Total 800 Balance -800 120 Intake: Oral 120 Output: Urine 800 Other: Voiding Method Toilet Toilet Weight 81.647 kg 80.1 kg The patient appeared well nourished and normally developed. Vital signs as documented. Head exam is unremarkable. No scleral icterus or corneal arcus noted. Neck is without jugular venous distension, thyromegaly, or carotid bruits. Carotid upstrokes are brisk bilaterally. Lungs are clear to auscultation and percussion. Cardiac exam reveals the PMI to be normally sized and situated. Rhythm is regular. First and second heart sounds are irregular consistent with atrial fibrillation.. No murmurs, rubs or gallops. Abdominal exam reveals normal bowel sounds, no masses, no organomegaly and no aortic enlargement. Extremities are nonedematous and both femoral and pedal pulses are normal.Examination of the skin revealed no evidence of significant rashes, suspicious appearing nevi or other concerning lesions. Neurologically awake and alert and is no focal neurological deficits. Results - Laboratory Findings CBC and BMP: 03/25/20 20:49 03/25/20 20:49 PT/INR, D-dimer PT 10.6 sec (9.0-12.0) 03/25/20 20:49 INR 1.0 (<1.2) 03/25/20 20:49 D-Dimer 0.63 mg/L FEU (<0.60) H 03/25/20 20:49 Abnormal lab findings: Abnormal Labs 03/25/20 03/25/20 06 20:49 20:49 20:49 WBC 12.3 H RDW 16.5 H Neutrophils # 9.1 H D-Dimer 0.63 H Sodium 135 L Lactate Dehydrogenase 03/25/20 22:00 WBC RDW Neutrophils # D-Dimer Sodium Lactate Dehydrogenase 292 L - Diagnostic Findings Chest x-ray: image reviewed CT scan - chest: image reviewed Assessment and Plan Plan: 1 chronic shortness of breath, multifactorial. The patient has a chronic stable COPD in addition to that the patient was having episodes of atrial fibrillation which probably contributing to his worsening shortness of breath. No signs of any GI bleed and hemoglobin is at 13.1. No signs of any decompensated heart failure. 2 chronic stable COPD 3 pulmonary nodule measuring 9 mm involving the lingular segment, likely a scar 4 hypertension 5 history of GI bleed 6 history of smoker Plan The patient will need a outpatient PFT regarding his COPD to assess severity and need for any maintenance inhalational treatments The patient will need a follow-up CAT scan 6 months time to monitor the left lingular nodule which is probably a nonmalignant process and this needs to be surveyed for a total of 24 months management of A. fib per cardiology anticoagulation per cardiology Awaiting echocardiogram We'll follow
[2020-03-26 12:49] LABS: Ferritin 18.2 ng/mL (22.0-322.0)
[2020-03-26] MEDS: SYMBICORT 160-4.5 MCG INHALER INHALATION SCH (20:23)
[2020-03-27] MEDS: SYMBICORT 160-4.5 MCG INHALER INHALATION SCH (08:23)
[2020-03-27] MEDS: IPRATROPIUM-ALBUTEROL 3 ML NEB INHALATION SCH ×2 (08:23→11:20)
[2020-03-27] MEDS ORDERED: NICOTINE 7MG/24HR PATCH TRANSDERM SCH (09:00)
[2020-03-27] MEDS: METOPROLOL TARTRATE 25 MG TAB PO SCH (09:00)
[2020-03-27] MEDS: ASPIRIN 325 MG TAB PO SCH (09:01)
[2020-03-27] MEDS: PANTOPRAZOLE 40 MG TABLET PO SCH (09:05)
--- NOTE | 2020-03-27 10:20 | P.PN ---
Subjective Progress Note Date: 03/27/20 This is a pleasant 59-year-old gentleman who has a known history of hypertension, he also states that he was diagnosed with atrial fibrillation in August at which time he was at [facility]. Patient had been initiated on oral anticoagulation, but he states that he had a significant drop in hemoglobin, underwent an EGD which discovered a bleeding ulcer and for this reason the anticoagulation at that point in time had been discontinued and he has not been taking it since. He also states that he had been initiated on Lopressor which she stopped, he felt that it may be contributing to his tiredness and weakness.he is a smoker, continues to smoke. Also has history of bilateral hip replacement and states that both of his shoulders are in need of surgery.Presents to the hospital with symptoms of progressively worsening fatigue and tiredness, he also states that he's noticed more shortness of breath than usual. Patient states he's been quite depressed, he has lost weight recently he lives with his daughter at present.chest x-ray on presentation here showed subtle multifocal by basilar obesities, favoring a multifocal pneumonia versus atelectasis. Underlying COPD.CTA of the chest was performed which was negative for pulmonary embolism, showed moderate emphysema,9 mm nodular density in the lingula, nonspecific nodularity of the left adrenal gland. CT adrenal mass protocol could be considered. Advanced degenerative changes of the shoulders. 03/27/2020 Patient was seen and examined this morning, overall doing well. continues to be in atrial fibrillation, rate under adequate control. He will be initiated on Eliquis today,blood pressure 122/80 with a heart rate in the 80s, temperature 97.8, 98% on room air.echocardiogram with Doppler study revealed a normal left ventricular systolic function. Objective - Vital Signs Vital signs: Vital Signs Temp 97.8 F 03/27/20 03:37 Pulse 84 03/27/20 08:35 Resp 20 03/27/20 03:37 BP 122/83 03/27/20 03:37 Pulse Ox 98 03/27/20 03:37 Intake & Output 03/26/20 03/27/20 03/27/20 18:59 06:59 18:59 Intake Total 600 240 Output Total 540 Balance 600 -540 240 Weight 82.5 kg Intake: Oral 600 240 Output: Urine 540 Other: Voiding Method Toilet # Voids 2 2 1 - Exam PHYSICAL EXAMINATION: GENERAL:59-year-old gentleman in no acute distress at the time of my examination HEENT: Head is atraumatic, normocephalic. Pupils equal, round. Sclera anicteric. Conjunctiva are clear. Mucous membranes of the mouth are moist. Neck is supple. There is no elevated jugular venous pressure.no carotid bruit is heard. HEART EXAMINATION:heart S1 and S2 irregularly irregular CHEST EXAMINATION:lungs reveal overall he decreased air exchange with some fine expiratory wheezing. Fine crackles at the bases. ABDOMEN: [ Soft, nontender. Bowel sounds are heard. No organomegaly noted]. EXTREMITIES:[ 2+ peripheral pulses with no evidence of peripheral edema and no calf tenderness noted]. NEUROLOGIC [patient is awake, alert and oriented 3 - Labs CBC & Chem 7: 03/25/20 20:49 03/25/20 20:49 Labs: Abnormal Lab Results - Last 24 Hours (Table) 03/25/20 Range/Units 22:00 Ferritin 18.2 L (22.0-322.0) ng/mL Microbiology - Last 24 Hours (Table) 03/25/20 22:00 Blood Culture - Preliminary Blood No Growth after 24 hours Assessment and Plan Plan: assessment and plan #1 atrial fibrillation with moderately rapid ventricular response. Persistence. Initially diagnosed in August, at which time patient was started on anticoagulation, subsequently this was discontinued because of bleeding ulcer. #2 hypertension #3 nicotine dependence #4 depression #5 history of bleeding ulcer with subsequent drop in hemoglobin #6 shortness of breath, evidence of multifocal bibasilar obesity state. P ossible multifocal pneumonia,CTA of the chest negative for pulmonary embolism,9 mm nodular density noted in the lingula, nonspecific nodularity in the left adrenal gland noted. Plan Echocardiogram with Doppler study revealed a normal left ventricular systolic function. Patient will be initiated today on Eliquis. He may be able to be discharged home from cardiology's perspective. Follow-up appointment will be made in the office post discharge. DNP note has been reviewed, I agree with a documented findings and plan of care. Patient was seen and examined.
--- NOTE | 2020-03-27 11:06 | P.PN ---
Subjective Patient is admitted for atrial fibrillation with rapid and regular rate patient is rate controlled 7 A. fib patient will be started on anticoagulation for chronic A. fib. Patient had history of GI bleed about 3 months ago and has been on proton pump inhibitor since then. Will verify for insurance authorization for Eliquis. Patient also has pulmonary nodules for which she'll follow with the RT As an outpatient PHYSICAL EXAMINATION: GENERAL: The patient is alert and oriented x3, not in any acute distress. Well developed, well nourished. HEENT: Pupils are round and equally reacting to light. EOMI. No scleral icterus. No conjunctival pallor. Normocephalic, atraumatic. No pharyngeal erythema. No thyromegaly. CARDIOVASCULAR: S1 and S2 present. No murmurs, rubs, or gallops. PULMONARY: Chest is clear to auscultation, no wheezing or crackles. ABDOMEN: Soft, nontender, nondistended, normoactive bowel sounds. No palpable organomegaly. MUSCULOSKELETAL: No joint swelling or deformity. EXTREMITIES: No cyanosis, clubbing, or pedal edema. NEUROLOGICAL: Gross neurological examination did not reveal any focal deficits. SKIN: No rashes. Respiratory chronic medical problems has physician course please refer to my HPI from yesterday Objective - Vital Signs Vital signs: Vital Signs Temp 97.8 F 03/27/20 03:37 Pulse 84 03/27/20 08:35 Resp 20 03/27/20 03:37 BP 122/83 03/27/20 03:37 Pulse Ox 98 03/27/20 03:37 Intake & Output 03/26/20 03/27/20 03/27/20 18:59 06:59 18:59 Intake Total 600 240 Output Total 540 Balance 600 -540 240 Weight 82.5 kg Intake: Oral 600 240 Output: Urine 540 Other: Voiding Method Toilet # Voids 2 2 1 # Bowel Movements 0 - Labs CBC & Chem 7: 03/25/20 20:49 03/25/20 20:49 Labs: Abnormal Lab Results - Last 24 Hours (Table) 03/25/20 Range/Units 22:00 Ferritin 18.2 L (22.0-322.0) ng/mL Microbiology - Last 24 Hours (Table) 03/25/20 22:00 Blood Culture - Preliminary Blood No Growth after 24 hours
[2020-03-27 11:21] VITALS: BP 109/67; RESP 19; TEMP 97.5
[2020-03-27 11:32] VITALS: PULSE 80
--- NOTE | 2020-03-27 11:43 | P.PN ---
Subjective Progress Note Date: 03/27/20 Principal diagnosis: Chronic shortness of breath, chronic stable COPD 59-year-old male patient, with history of atrial fibrillation that was diagnosed back in August 2019 through [facility]. The patient was given appropriate treatment including oral anticoagulation. The patient stated that he had a drop in the hemoglobin accordingly and he underwent an EGD and he was found to have a bleeding ulcer and for that reason antipronation was discontinued he was not take any form of anticoagulants. He stated that he was taken Lopressor which was also stopped. He apparently was getting fatigued and tired while taking the Lopressor. Is a chronic smoker and is known to have COPD. He came into the hospital because of worsening shortness of breath. He was found to be in atrial fibrillation. The patient's chest x-ray was consistent with COPD. CT angios on was done that showed no evidence of any pulmonary embolism. There was evidence of emphysema and addition to a 9 mm nodule in the lingula which is probably a scar rather than through malignant lesion. The patient smokes a pack of cigarettes a day. Another nonspecific lesion involving the adrenal was also seen. The patient has no significant cough sputum production or hemoptysis. No reported pleurisy. He has history of breath and hip replacement and he also has arthritis of the shoulders. His blood work revealed a hemoglobin of 13.1. Aggressive blood work and electrodes are within normal limits. LFTs are normal. Lactic acid level is within normal. D-dimer 0.6. Troponins times she has been negative. ProBNP level was 736. On 03/27/2020 patient seen in follow-up on selective care unit, he is awake and alert, in no acute distress, doing well, breathing is improving, remains in atr ial fibrillation, with a rate of 105 BPM, patient will be started on Eliquis 5 mg twice daily. Breathing is comfortable, no worsening dyspnea, lung sounds are diminished, no wheezing or rhonchi, no cough or congestion, no fever or chills. Room air pulse ox is 98%. No acute events overnight. He is being followed by cardiology, echocardiogram showed left ventricle systolic function within normal limits with an EF 50-55-60%, mild mitral regurgitation, and mild tricuspid regurgitation. No complaints of chest pain. Patient has been cleared for discharge from cardiology perspective, from pulmonary perspective patient can be discharged with outpatient follow-up Objective - Vital Signs Vital signs: Vital Signs Temp 97.5 F L 03/27/20 08:00 Pulse 80 03/27/20 11:31 Resp 19 03/27/20 08:00 BP 109/67 03/27/20 08:00 Pulse Ox 98 03/27/20 03:37 Intake & Output 03/26/20 03/27/20 03/27/20 18:59 06:59 18:59 Intake Total 600 240 Output Total 540 Balance 600 -540 240 Weight 82.5 kg Intake: Oral 600 240 Output: Urine 540 Other: Voiding Method Toilet Toilet # Voids 2 2 1 # Bowel Movements 0 - Exam GENERAL EXAM: Alert, very pleasant, 59-year-old white male with a pulse ox of 98% on room air comfortable in no apparent distress. HEAD: Normocephalic/atraumatic. EYES: Normal reaction of pupils, equal size. Conjunctiva pink, sclera white. NOSE: Clear with pink turbinates. THROAT: No erythema or exudates. NECK: No masses, no JVD, no thyroid enlargement, no adenopathy. CHEST: No chest wall deformity. Symmetrical expansion. LUNGS: Diminished air entry with no crackles, wheeze, rhonchi or dullness. CVS: Irregular rate and rhythm, normal S1 and S2, no gallops, no murmurs, no rubs ABDOMEN: Soft, nontender. No hepatosplenomegaly, normal bowel sounds, no guarding or rigidity. EXTREMITIES: No clubbing, no edema, no cyanosis, 2+ pulses and upper and lower extremities. MUSCULOSKELETAL: Muscle strength and tone normal. SPINE: No scoliosis or deformity SKIN: No rashes CENTRAL NERVOUS SYSTEM: Alert and oriented -3. No focal deficits, tone is normal in all 4 extremities. PSYCHIATRIC: Alert and oriented -3. Appropriate affect. Intact judgment and insight. - Labs CBC & Chem 7: 03/25/20 20:49 03/25/20 20:49 Labs: Abnormal Lab Results - Last 24 Hours (Table) 03/25/20 Range/Units 22:00 Ferritin 18.2 L (22.0-322.0) ng/mL Microbiology - Last 24 Hours (Table) 03/25/20 22:00 Blood Culture - Preliminary Blood No Growth after 24 hours Assessment and Plan Plan: Assessment: 1 chronic shortness of breath, multifactorial. The patient has a chronic stable COPD in addition to that the patient was having episodes of atrial fibrillation which probably contributing to his worsening shortness of breath. No signs of any GI bleed and hemoglobin is at 13.1. No signs of any decompensated heart failure. 2 chronic stable COPD 3 pulmonary nodule measuring 9 mm involving the lingular segment, likely a scar 4 hypertension 5 history of GI bleed 6 history of smoker Plan: From pulmonary perspective patient is stable, he can be considered for discharge home today, he is going to be started on Eliquis for anticoagulation for persistent atrial fibrillation, echocardiogram results have been noted. Smoking cessation has been advised, patient will be sent home on Spiriva, Ventolin and further adjustments will be made in the office. Patient will need outpatient PFT, and follow-up CAT scan in 6 months time to monitor the left lingular nodu le. I performed a history & physical examination of the patient and discussed their management with my nurse practitioner, Gema Moreira. I reviewed the nurse practitioner's note and agree with the documented findings and plan of care. Lung sounds are positive for diminished breath sounds. The findings and the impression was discussed with the patient. I attest to the documentation by the nurse practitioner. Time with Patient: Less than 30
--- NOTE | 2020-04-03 17:43 | P.DS ---
Providers Date of admission: 03/25/20 22:07 Expected date of discharge: 03/27/20 Attending physician: Sadia Reza Consults: 03/25/20 22:07 Consult Physician Routine Consulting Provider: Nila Kang Consult Reason/Comments: dyspnea Do you want consulting provider notified?: Yes 03/25/20 22:10 Consult Physician Urgent Consulting Provider: Temi Zapien Consult Reason/Comments: cp Do you want consulting provider notified?: Yes Primary care physician: Zackary Krause DO Hospital Course: Refer to the progress note from same day Plan - Discharge Summary Discharge Rx Participant: No New Discharge Prescriptions: New Metoprolol Tartrate [Lopressor] 25 mg PO BID #60 tab Budesonide-Formot 160-4.5 Mcg [Symbicort 160-4.5 Mcg Inhaler] 2 puff INHALATION RT-BID #1 inhaler Tiotropium [place] [Spiriva] 1 cap INHALATION DAILY #1 device Albuterol Inhaler [Ventolin Hfa Inhaler] 2 puff INHALATION RT-QID PRN #1 inhaler PRN Reason: Shortness Of Breath Or Wheezing Apixaban [Eliquis] 5 mg PO BID #60 tab Changed Pantoprazole [Protonix] 40 mg PO DAILY #0 Discharge Medication List Albuterol Inhaler [Ventolin Hfa Inhaler] 2 puff INHALATION RT-QID PRN #1 inhaler 03/26/20 [Rx] Budesonide-Formot 160-4.5 Mcg [Symbicort 160-4.5 Mcg Inhaler] 2 puff INHALATION RT-BID #1 inhaler 03/26/20 [Rx] Metoprolol Tartrate [Lopressor] 25 mg PO BID #60 tab 03/26/20 [Rx] Pantoprazole [Protonix] 40 mg PO DAILY #0 03/26/20 [Rx] Tiotropium [place] [Spiriva] 1 cap INHALATION DAILY #1 device 03/26/20 [Rx] Apixaban [Eliquis] 5 mg PO BID #60 tab 03/27/20 [Rx] Follow up Appointment(s)/Referral(s): Zackary Krause DO [Primary Care Provider] - 04/22/20 11:15 am Nila Kang MD [STAFF PHYSICIAN] - 2 Weeks Patient Instructions/Handouts: Dyspnea (DC) Activity/Diet/Wound Care/Special Instructions: Prior authorization started on Eliquis - follow up with your PCP prior to needing a refill Discharge Disposition: HOME SELF-CARE
== END 2020-03-27 13:31 | disposition home or self-care (01) ==
LOC: EC 20:28 → 3SCARD 22:07
PROVIDERS: ADMIT Internal Medicine; ATTEND Internal Medicine
DX: J43.9 Emphysema, unspecified (principal); I48.19 Other persistent atrial fibrillation; I10 Essential (primary) hypertension; F17.200 Nicotine dependence, unspecified, uncomplicated; R79.1 Abnormal coagulation profile; R91.8 Other nonspecific abnormal finding of lung field; R63.4 Abnormal weight loss; M19.012 Primary osteoarthritis, left shoulder; M19.011 Primary osteoarthritis, right shoulder; E27.8 Other specified disorders of adrenal gland; I08.1 Rheumatic disorders of both mitral and tricuspid valves; F32.9 Major depressive disorder, single episode, unspecified; T44.7X6A Underdosing of beta-adrenoreceptor antagonists, initial encounter; Z91.128 Patient's intentional underdosing of medication regimen for other reason; Z68.25 Body mass index [BMI] 25.0-25.9, adult; Z03.818 Encounter for observation for suspected exposure to other biological agents ruled out; Z79.899 Other long term (current) drug therapy; Z79.891 Long term (current) use of opiate analgesic; Z86.2 Personal history of diseases of the blood and blood-forming organs and certain disorders involving the immune mechanism; Z87.19 Personal history of other diseases of the digestive system; Z87.11 Personal history of peptic ulcer disease; Z96.643 Presence of artificial hip joint, bilateral; Z79.51 Long term (current) use of inhaled steroids
CPT/HCPCS: 96376; 96374; 99285; 36415; 94640 ×4; 93005; 93306; 85379; 83880; 80061; 80053; 82728; 83605; 83615; 83735; 84484 ×2; 85025; 85610; 85730; 86140; 87040; 84145; 71046; 71275; G0378 ×3; U0003; S4990 ×2; J2930 ×2; Q9967

== ENCOUNTER 2021-04-29 20:54 | Inpatient (IN) | payer OTHER ==
[2021-04-29] MEDS ORDERED: IPRATROPIUM-ALBUTEROL 3 ML NEB INHALATION STA ×2 (21:35→22:05)
--- NOTE | 2021-04-29 21:44 | ED ---
SOB HPI - General Chief Complaint: Shortness of Breath Stated Complaint: BIANCA Source: patient, EMS, RN notes reviewed, old records reviewed Mode of arrival: EMS Limitations: no limitations - History of Present Illness Initial Comments: This is a 58-year-old male DF for severe shortness of breath history of CAD COPD history of atrial fibrillation. Take this as bad as it has ever been. Patient has received both covert vaccinations, no fevers. Symptoms are relatively sudden onset today with severe shortness of breath unable to take a deep breath cough and congestion. Patient states he is unable to urinate congestion which is been billing up the last few days. No chest pain, history of atrial fibrillation MD Complaint: shortness of breath, cough -: days(s) Severity: severe Severity scale (1-10): 10 Consistency: constant Improves With: nothing Worsens With: exertion, movement, coughing Known History Of: COPD, congestive heart failure Context: recent URI Associated Symptoms: chest pain, cough, sputum production Treatments Prior to Arrival: none - Related Data Home Medications Medication Instructions Recorded Confirmed Metoprolol Tartrate [Lopressor] 50 mg PO BID 04/29/21 04/29/21 Pantoprazole [Protonix] 40 mg PO BID 04/29/21 04/29/21 Previous Rx's Medication Instructions Recorded Albuterol Inhaler [Ventolin Hfa 2 puff INHALATION RT-QID PRN #1 03/26/20 Inhaler] inhaler Allergies Allergy/AdvReac Type Severity Reaction Status Date / Time No Known Allergies Allergy Verified 04/29/21 22:30 Review of Systems ROS Statement: Those systems with pertinent positive or pertinent negative responses have been documented in the HPI. ROS Other: All systems not noted in ROS Statement are negative. Past Medical History Past Medical History: Atrial Fibrillation, Hypertension Additional Past Medical History / Comment(s): gastric ulcers, GI bleed History of Any Multi-Drug Resistant Organisms: None Reported Past Surgical History: No Surgical Hx Reported Additional Past Surgical History / Comment(s): bilateral hip replacement Past Psychological History: No Psychological Hx Reported Past Alcohol Use History: Daily Past Drug Use History: None Reported General Exam General appearance: alert, anxious, in distress Head exam: Present: atraumatic, normocephalic, normal inspection Eye exam: Present: normal appearance, PERRL, EOMI. Absent: scleral icterus, conjunctival injection, periorbital swelling ENT exam: Present: normal exam, mucous membranes moist Neck exam: Present: normal inspection. Absent: tenderness, meningismus, lymphadenopathy Respiratory exam: Present: respiratory distress, wheezes, accessory muscle use, decreased breath sounds, prolonged expiratory. Absent: rales, rhonchi, stridor Cardiovascular Exam: Present: tachycardia, irregular rhythm, normal heart sounds. Absent: systolic murmur, diastolic murmur, rubs, gallop, clicks GI/Abdominal exam: Present: soft, normal bowel sounds. Absent: distended, tenderness, guarding, rebound, rigid Extremities exam: Present: normal inspection, full ROM, normal capillary refill. Absent: tenderness, pedal edema, joint swelling, calf tenderness Back exam: Present: normal inspection Neurological exam: Present: alert, oriented X3, CN II-XII intact Psychiatric exam: Present: normal affect, normal mood Skin exam: Present: warm, dry, intact, normal color. Absent: rash Course Vital Signs 04/29/21 04/29/21 04/29/21 20:58 21:11 21:19 Temperature 98.7 F Pulse Rate 101 H 96 90 Respiratory 26 H 24 25 H Rate Blood Pressure 157/118 150/102 147/106 O2 Sat by Pulse 92 L 97 98 Oximetry 04/29/21 04/29/21 04/29/21 21:22 21:32 21:47 Temperature Pulse Rate 104 H 80 Respiratory 27 H 25 H 26 H Rate Blood Pressure 145/102 140/128 O2 Sat by Pulse 98 98 Oximetry 04/29/21 04/29/21 04/29/21 21:51 22:01 22:09 Temperature Pulse Rate 96 92 86 Respiratory Rate Blood Pressure 144/100 O2 Sat by Pulse 98 Oximetry 04/29/21 04/29/21 04/29/21 22:10 22:18 22:19 Temperature Pulse Rate 82 101 H 84 Respiratory 24 Rate Blood Pressure 142/92 O2 Sat by Pulse 96 Oximetry 04/29/21 04/29/21 22:38 22:53 Temperature Pulse Rate 96 81 Respiratory 30 H 19 Rate Blood Pressure 128/78 140/86 O2 Sat by Pulse 84 L 98 Oximetry - Reevaluation(s) Reevaluation #1: 04/29/21 21:51 Medical record is reviewed Reevaluation #2: 04/29/21 23:00 Patient showing no improvement after breathing treatments, Patient has significant desaturations To be placed on BiPAP Reevaluation #3: 04/29/21 23:01 Patient informed results and questions have been answered Medical Decision Making - Medical Decision Making 48 female DF for evaluation of severe shortness of breath COPD exacerbation h ypoxia A. fib with RVR. Placed on BiPAP and will be admitted - Lab Data Result diagrams: 04/29/21 21:36 04/29/21 21:36 Lab Results 04/29/21 04/29/21 04/29/21 Range/Units 21:36 21:36 21:36 WBC 12.3 H (3.8-10.6) k/uL RBC 4.66 (4.30-5.90) m/uL Hgb 15.1 (13.0-17.5) gm/dL Hct 44.8 (39.0-53.0) % MCV 96.1 (80.0-100.0) fL MCH 32.5 (25.0-35.0) pg MCHC 33.8 (31.0-37.0) g/dL RDW 13.3 (11.5-15.5) % Plt Count 249 (150-450) k/uL MPV 8.6 Neutrophils % 61 % Lymphocytes % 18 % Monocytes % 8 % Eosinophils % 9 % Basophils % 1 % Neutrophils # 7.6 (1.3-7.7) k/uL Lymphocytes # 2.3 (1.0-4.8) k/uL Monocytes # 1.0 (0-1.0) k/uL Eosinophils # 1.1 H (0-0.7) k/uL Basophils # 0.1 (0-0.2) k/uL PT 10.9 (9.0-12.0) sec INR 1.0 (<1.2) APTT 24.6 (22.0-30.0) sec Sodium 136 L (137-145) mmol/L Potassium 4.0 (3.5-5.1) mmol/L Chloride 96 L (98-107) mmol/L Carbon Dioxide 29 (22-30) mmol/L Anion Gap 11 mmol/L BUN 21 H (9-20) mg/dL Creatinine 0.77 (0.66-1.25) mg/dL Est GFR (CKD-EPI)AfAm >90 (>60 ml/min/1.73 sqM) Est GFR (CKD-EPI)NonAf >90 (>60 ml/min/1.73 sqM) Glucose 123 H (74-99) mg/dL Plasma Lactic Acid Tahir (0.7-2.0) mmol/L Calcium 9.3 (8.4-10.2) mg/dL Phosphorus 5.8 H (2.5-4.5) mg/dL Magnesium 1.6 (1.6-2.3) mg/dL Total Bilirubin 0.4 (0.2-1.3) mg/dL AST 37 (17-59) U/L ALT 21 (4-49) U/L Alkaline Phosphatase 81 (38-126) U/L Troponin I (0.000-0.034) ng/mL Total Protein 7.1 (6.3-8.2) g/dL Albumin 4.4 (3.5-5.0) g/dL 04/29/21 04/29/21 Range/Units 21:36 21:36 WBC (3.8-10.6) k/uL RBC (4.30-5.90) m/uL Hgb (13.0-17.5) gm/dL Hct (39.0-53.0) % MCV (80.0-100.0) fL MCH (25.0-35.0) pg MCHC (31.0-37.0) g/dL RDW (11.5-15.5) % Plt Count (150-450) k/uL MPV Neutrophils % % Lymphocytes % % Monocytes % % Eosinophils % % Basophils % % Neutrophils # (1.3-7.7) k/uL Lymphocytes # (1.0-4.8) k/uL Monocytes # (0-1.0) k/uL Eosinophils # (0-0.7) k/uL Basophils # (0-0.2) k/uL PT (9.0-12.0) sec INR (<1.2) APTT (22.0-30.0) sec Sodium (137-145) mmol/L Potassium (3.5-5.1) mmol/L Chloride (98-107) mmol/L Carbon Dioxide (22-30) mmol/L Anion Gap mmol/L BUN (9-20) mg/dL Creatinine (0.66-1.25) mg/dL Est GFR (CKD-EPI)AfAm (>60 ml/min/1.73 sqM) Est GFR (CKD-EPI)NonAf (>60 ml/min/1.73 sqM) Glucose (74-99) mg/dL Plasma Lactic Acid Tahir 1.7 (0.7-2.0) mmol/L Calcium (8.4-10.2) mg/dL Phosphorus (2.5-4.5) mg/dL Magnesium (1.6-2.3) mg/dL Total Bilirubin (0.2-1.3) mg/dL AST (17-59) U/L ALT (4-49) U/L Alkaline Phosphatase (38-126) U/L Troponin I <0.012 (0.000-0.034) ng/mL Total Protein (6.3-8.2) g/dL Albumin (3.5-5.0) g/dL - EKG Data -: EKG Interpreted by Me (EKG is A. fib with RVR 180 QRS 110 QTc 504) - Radiology Data Radiology results: report reviewed (Chest x-ray shows no significant acute disease), image reviewed Critical Care Time Critical Care Time: Yes Total Critical Care Time: 31 Disposition Clinical Impression: Dyspnea, Acute exacerbation of chronic obstructive pulmonary disease, Acute res piratory failure, Hypoxia, Atrial fibrillation with RVR Disposition: ADMITTED IP TO THIS HOSP Condition: Serious Is patient prescribed a controlled substance at d/c from ED?: No Referrals: Zackary Krause DO [Primary Care Provider] - 1-2 days
[2021-04-29 21:46] LABS: Basophils # (A) 0.1 k/uL (0-0.2); Basophils % (A) 1 %; Eosinophils # (A) 1.1 k/uL (0-0.7); Eosinophils % (A) 9 %; HCT 44.8 % (39.0-53.0); HGB 15.1 gm/dL (13.0-17.5); Lymphocytes # (A) 2.3 k/uL (1.0-4.8); Lymphocytes % (A) 18 %; MCH 32.5 pg (25.0-35.0); MCHC 33.8 g/dL (31.0-37.0); MCV 96.1 fL (80.0-100.0); Mean Platelet Volume 8.6; Monocytes % (A) 8 %; Neutrophils # (A) 7.6 k/uL (1.3-7.7); Neutrophils % (A) 61 %; Platelet Count 249 k/uL (150-450); RBC 4.66 m/uL (4.30-5.90); RDW 13.3 % (11.5-15.5); WBC 12.3 k/uL (3.8-10.6)
--- NOTE | 2021-04-29 21:55 | XR ---
EXAMINATION TYPE: XR chest 1V portable DATE OF EXAM: 04/29/2021 COMPARISON: 03/25/2020 HISTORY: Short of breath TECHNIQUE: FINDINGS: Heart and mediastinum are normal. Lungs are clear. Diaphragm is normal. Bony thorax is inta ct. There are chest leads. IMPRESSION: Normal chest. No change.
[2021-04-29 21:57] LABS: Partial Thromboplastin Time 24.6 sec (22.0-30.0); Prothrombin Time 10.9 sec (9.0-12.0)
[2021-04-29 22:03] LABS: ALT 21 U/L (4-49); AST 37 U/L (17-59); African American GFR (CKD) >90 (>60 ml/min/1.73 sqM); Albumin 4.4 g/dL (3.5-5.0); Alkaline Phosphatase 81 U/L (38-126); Anion Gap 11 mmol/L; Blood Urea Nitrogen 21 mg/dL (9-20); Calcium 9.3 mg/dL (8.4-10.2); Carbon Dioxide 29 mmol/L (22-30); Chloride 96 mmol/L (98-107); Glucose 123 mg/dL (74-99); Magnesium 1.6 mg/dL (1.6-2.3); Non-African American GFR(CKD) >90 (>60 ml/min/1.73 sqM); Phosphorus 5.8 mg/dL (2.5-4.5); Sodium 136 mmol/L (137-145); Total Bilirubin 0.4 mg/dL (0.2-1.3); Total Protein 7.1 g/dL (6.3-8.2)
[2021-04-29] MEDS ORDERED: ALBUTEROL NEBULIZED 2.5 MG/3 ML INHALATION STA (22:18)
[2021-04-29] MEDS ORDERED: methylPREDNISolone SOD SUCCI 125 MG/2 ML VIAL IV STA (22:57)
[2021-04-29] MEDS ORDERED: MORPHINE SULFATE 2 MG/ML SYRINGE IVP STA (22:58)
[2021-04-29] MEDS ORDERED: LORazepam 2 MG/ML INJ IV PRN (22:58)
[2021-04-29] MEDS ORDERED: MORPHINE SULFATE 4 MG/ML SYRINGE IVP PRN (22:58)
[2021-04-30] MEDS: SODIUM CHLORIDE 0.9% 1,000 ML IV SCH ×3 (00:54→20:40)
[2021-04-30] MEDS: methylPREDNISolone SOD SUCCI 125 MG/2 ML VIAL IV SCH ×4 (00:54→16:59)
[2021-04-30] MEDS ORDERED: RX INFO: IV CONTRAST WAS GIVEN 1 EACH MISC MISCELLANE PRN (01:16)
--- NOTE | 2021-04-30 01:20 | P.HPIM ---
History of Present Illness H&P Date: 04/30/21 Patient is a 58-year-old male with a PMH of A. fib not on anticoagulation and COPD who presented to the emergency room with complaints of shortness of breath. The patient reports that his breathing of gradually worsening over the past week and became so bad that he decided to come to the emergency room. He reports his chronic cough, now worse than usual, with greenish phlegm. He denied chest pain, nausea, vomiting, or leg pain. Denied fever, chills, abdominal pain, diarrhea. Denied recent travel or prolonged immobilization. Reports that this feels similar to his prior COPD exacerbations. In the emergency room a chest x-ray was unremarkable. EKG showing A. fib with RVR 118 bpm. Laboratory evaluation was remarkable for leukocytosis of 12.3, sodium 136, chloride 96, BUN 21, glucose 123, and creatinine less than 0.012. Review of systems: Pertinent positives and negatives as discussed in HPI, a complete review of systems was performed and all other systems are negative. Physical examination: General: non toxic, no distress, appears at stated age, normal weight, on BiPAP Derm: no unusual rashes/lesions no unusual ecchymoses, warm, dry Head: atraumatic, normocephalic, symmetric Eyes: EOMI, no lid lag, anicteric sclera, pupils equal round reactive to light ENT: Nose and ears atraumatic, no thrush, no pharyngeal erythema Neck: No thyromegaly, no cervical lymphadenopathy, trachea midline, supple Mouth: no lip lesion, mucus membranes moist Cardiovascular: S1S2 reg, no murmur, positive posterior tibial pulse bilateral, no edema, capillary refill less than 2 seconds Lungs: Bilateral wheezing noted, no rhonchi, no rales , no accessory muscle use Abdominal: soft, nontender to palpation, no guarding, no appreciable organomegaly, normal bowel sounds Ext: no gross muscle atrophy, muscle strength 5 out of 5 in all 4 extremities grossly, no contractures, Neuro: CN II-XI grossly intact, light touch intact all 4 extremities, finger to nose within normal limits, Psych: Alert, oriented, appropriate affect Assessment/plan Acute COPD exacerbation -Continue with DuoNeb's, Solu-Medrol -BiPAP -Supplemental oxygen Chronic conditions: Osteoarthritis, A. fib not on anticoagulation -C/w cardiac monitoring -Continue home meds DVT prophylaxis -Heparin subq The patient is admitted with an anticipated greater than 2 midnight stay for evaluation of acute COPD exace CODE STATUS: Full code Discussed with: Patient Anticipated discharge date: 2-[address]: Home A total of 35 minutes was spent on the care of this complex patient more than 50% of the time was spent in counseling and care coordination. Past Medical History Past Medical History: Atrial Fibrillation, COPD, Hypertension, Osteoarthritis (OA) Additional Past Medical History / Comment(s): gastric ulcers, GI bleed History of Any Multi-Drug Resistant Organisms: None Reported Past Surgical History: Orthopedic Surgery Additional Past Surgical History / Comment(s): bilateral hip replacement Past Anesthesia/Blood Transfusion Reactions: No Reported Reaction Past Psychological History: No Psychological Hx Reported Smoking Status: Current every day smoker Past Alcohol Use History: Daily Past Drug Use History: None Reported Medications and Allergies Home Medications Medication Instructions Recorded Confirmed Type Albuterol Inhaler [Ventolin Hfa 2 puff INHALATION RT-QID PRN #1 03/26/20 04/29/21 Rx Inhaler] inhaler Metoprolol Tartrate [Lopressor] 50 mg PO BID 04/29/21 04/29/21 History Pantoprazole [Protonix] 40 mg PO BID 04/29/21 04/29/21 History Allergies Allergy/AdvReac Type Severity Reaction Status Date / Time No Known Allergies Allergy Verified 04/29/21 22:30 Physical Exam Vitals: Vital Signs Temp Pulse Pulse Resp BP BP Pulse Ox 04/29/21 23:54 97.6 F 90 21 145/87 98 04/29/21 23:36 87 20 140/97 98 04/29/21 23:35 102 H 04/29/21 23:09 104 H 04/29/21 22:53 81 19 140/86 98 04/29/21 22:38 96 30 H 128/78 84 L 04/29/21 22:19 84 04/29/21 22:18 101 H 24 142/92 96 04/29/21 22:10 82 04/29/21 22:09 86 04/29/21 22:01 92 144/100 98 04/29/21 21:51 96 04/29/21 21:47 80 26 H 140/128 98 04/29/21 21:32 104 H 25 H 145/102 98 04/29/21 21:22 27 H 04/29/21 21:19 90 25 H 147/106 98 04/29/21 21:11 96 24 150/102 97 04/29/21 20:58 98.7 F 101 H 26 H 157/118 92 L Intake and Output 04/29/21 04/29/21 04/30/21 14:59 22:59 06:59 Other: Weight 81.647 kg 81.647 kg Results CBC & Chem 7: 04/29/21 21:36 04/29/21 21:36 Labs: Abnormal Lab Results - Last 24 Hours (Table) 04/29/21 04/29/21 Range/Units 21:36 21:36 WBC 12.3 H (3.8-10.6) k/uL Eosinophils # 1.1 H (0-0.7) k/uL Sodium 136 L (137-145) mmol/L Chloride 96 L (98-107) mmol/L BUN 21 H (9-20) mg/dL Glucose 123 H (74-99) mg/dL Phosphorus 5.8 H (2.5-4.5) mg/dL Thrombosis Risk Factor Assmnt - Choose All That Apply Any of the Below Risk Factors Present?: Yes Each Factor Represents 1 point: Abnormal pulmonary function (COPD), Obesity (BMI >25) Other Risk Factors: Yes Each Risk Factor Represents 2 Points: Age 61-74 years Thrombosis Risk Factor Assessment Total Risk Factor Score: 4 Thrombosis Risk Factor Assessment Level: Moderate Risk
[2021-04-30] MEDS: ALBUTEROL NEBULIZED 2.5 MG/3 ML INHALATION SCH ×4 (07:06→19:54)
[2021-04-30] MEDS: PANTOPRAZOLE 40 MG TABLET PO SCH ×2 (07:06→20:40)
[2021-04-30] MEDS ORDERED: METOPROLOL TARTRATE 50 MG TAB PO SCH (09:00)
--- NOTE | 2021-04-30 10:07 | CT ---
EXAMINATION TYPE: CT chest w con DATE OF EXAM: 04/30/2021 COMPARISON: 03/25/2020 HISTORY: 60-year-old male SOB, lung nodules TECHNIQUE: Contiguous axial scanning of the chest after the administration of 100 mL of Isovue 300. Coronal/sagittal reconstructions performed. CT DLP: 782.4mGycm. Automatic exposure control utilized for a dose reduction. FINDINGS: The heart is normal size without pericardial effusion. Mild LAD coronary artery calcifications are pr esent. 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 Conventional arch vessel branching anatomy. Enlarged caliber to the main right and left pulmonary arteries and 3.7 and 2.8 cm, respectively, sugg esting underlying pulmonary hypertension. Borderline to mildly enlarged right paratracheal lymph node measuring 1.2 cm. Otherwise, scattered no nenlarged mediastinal lymph nodes are present. This probably reactive/post inflammatory. Mild right apical pleural parenchymal scarring. Background mild to moderate centrilobular emphysema. Mild diffuse bronchial wall thickening. Some dependent secretions/debris at the level of the jan. There seems to be some stable pleural thickening at the right base and some mild strandy scarring or atelectasis. Some probable strandy scarring at the inferior lingula redemonstrated. The previous nodu lar configuration has resolved. No consolidation or pleural effusion. Visualized upper abdomen show subtle contour nodularity of the liver and a 2.4 cm posterior cortical cyst left kidney. Stable 1 cm subtle nodularity left adrenal gland suggesting a benign etiology. Bones: Advanced degenerative change left humeral joint and at least moderate at the right glenohumera l joint. IMPRESSION: 1. COPD with mild to moderate emphysema and pulmonary arterial hypertension. Some incidental dependen t debris/secretions in the jan. 2. Some strandy pleural parenchymal scarring at the lung bases. The more nodular appearance at the in ferior lingula seen on 03/25/2020 has resolved. 3. Subtle contour nodularity of the liver. Correlate clinically to exclude the possibility of early c irrhosis.
--- NOTE | 2021-04-30 11:06 | P.PN ---
Progress Note - Text Progress Note Date: 04/30/21 I saw and evaluated the patient independently today. I agree with the assessment/plan as documented by my colleague earlier this morning. Added azithromycin 500 mg by mouth daily. Attempt to wean off oxygen as patient is currently 99% on 3 L of nasal cannula.
[2021-04-30] MEDS: amLODIPine 5 MG TAB PO SCH (11:08)
[2021-04-30] MEDS: AZITHROMYCIN 500 MG TAB PO SCH (11:08)
--- NOTE | 2021-04-30 11:46 | P.CNPUL ---
History of Present Illness Consult date: 04/30/21 Reason for consult: dyspnea History of present illness: 58-year-old male patient with known history of COPD continues to smoke 1 pack of cigarettes a day. He was hospitalized approximately year ago for COPD exacerbation the patient is coming in for essentially the same. Over the past 1 year, the patient continues to smoke cigarettes on half to 1 pack of cigarettes a day. He was using Ventolin rescue inhaler on an as-needed basis and he uses albuterol nebulized treatments when necessary. No other maintenance respiratory medications or inhalers. He came into the hospital because of worsening shortness of breath. With the recent change in heat and humidity, he was feeling more short of breath. No significant sputum production. No angina. No palpitations. No swelling lower extremities. No difficulties. No pulmonary embolism. The patient came in the hospital for that reason. He was found to be quite short of breath. The computed tomography scan of the chest was done that showed no evidence of any pulmonary embolism. There is background COPD. No evidence of any pneumonia or pulmonary infiltration. He is known to have chronic atrial fibrillation. He is not receiving anticoagulation. He has a previous history of GI bleed and since then he has not taken any form of anticoagulants regarding his chronic atrial fibrillation. For now, there is no evidence of any GI bleed. Hemoglobin stable at 15.5. No leukocytosis. Troponins negative. No EKG changes or abnormalities. Normal renal function. Note that the patient was initially placed on BiPAP for increased shortness of breath. He was in atrial fibrillation with rapid ventricular response at a time of admission and his current rate is under better control. He is currently off BiPAP and is currently on oxygen at 3 L with a pulse ox of 99%. He is afebrile. Review of Systems Constitutional: Denies chills, Denies fever Eyes: denies as per HPI, denies blurred vision, denies bulging eye, denies decreased vision, denies diplopia, denies discharge, denies dry eye, denies irritation, denies itching, denies pain, denies photophobia, denies loss of peripheral vision, denies loss of vision, denies tunnel vision/blind spots Ears: deny: decreased hearing, ear discharge, earache, tinnitus Ears, nose, mouth and throat: Denies headache, Denies sore throat Cardiovascular: Reports decreased exercise tolerance, Reports dyspnea on exertion Respiratory: Reports as per HPI, Reports dyspnea Gastrointestinal: Reports as per HPI Genitourinary: Reports as per HPI Musculoskeletal: Reports as per HPI Musculoskeletal: absent: ankle pain, ankle stiffness, ankle swelling, as per HPI, elbow pain, elbow stiffness, elbow swelling, foot pain, foot stiffness, foot swelling, hand pain, hand stiffness, hand swelling, hip pain, hip stiffness, hip swelling, knee pain, knee stiffness, knee swelling, shoulder pain, shoulder stiffness, shoulder swelling, wrist pain, wrist stiffness, wrist swelling Integumentary: Reports as per HPI Neurological: Reports as per HPI Psychiatric: Reports as per HPI Endocrine: Reports as per HPI Hematologic/Lymphatic: Reports as per HPI Constitutional: Reports weakness Eyes: denies as per HPI, denies blurred vision, denies bulging eye, denies decreased vision, denies diplopia, denies discharge, denies dry eye, denies irritation, denies itching, denies pain, denies photophobia, denies loss of peripheral vision, denies loss of vision, denies tunnel vision/blind spots Ears: deny: decreased hearing, ear discharge, earache, tinnitus Ears, nose, mouth and throat: Reports as per HPI Breasts: absent: as per HPI, gynecomastia Cardiovascular: Reports decreased exercise tolerance, Reports dyspnea on exertion, Reports shortness of breath Respiratory: Reports cough, Reports dyspnea, Reports wheezing Gastrointestinal: Reports as per HPI Genitourinary: Reports as per HPI Musculoskeletal: Reports as per HPI Musculoskeletal: absent: ankle pain, ankle stiffness, ankle swelling Integumentary: Reports as per HPI Neurological: Reports as per HPI Psychiatric: Reports as per HPI Endocrine: Reports as per HPI Hematologic/Lymphatic: Reports as per HPI Allergic/Immunologic: Reports as per HPI Past Medical History Past Medical History: Atrial Fibrillation, COPD, Hypertension, Osteoarthritis (OA) Additional Past Medical History / Comment(s): gastric ulcers, GI bleed History of Any Multi-Drug Resistant Organisms: None Reported Past Surgical History: Orthopedic Surgery Additional Past Surgical History / Comment(s): bilateral hip replacement Past Anesthesia/Blood Transfusion Reactions: No Reported Reaction Past Psychological History: No Psychological Hx Reported Smoking Status: Current every day smoker Past Alcohol Use History: Daily Past Drug Use History: None Reported Medications and Allergies Home Medications Medication Instructions Recorded Confirmed Type Albuterol Inhaler [Ventolin Hfa 2 puff INHALATION RT-QID PRN #1 03/26/20 04/29/21 Rx Inhaler] inhaler Metoprolol Tartrate [Lopressor] 50 mg PO BID 04/29/21 04/29/21 History Pantoprazole [Protonix] 40 mg PO BID 04/29/21 04/29/21 History Allergies Allergy/AdvReac Type Severity Reaction Status Date / Time No Known Allergies Allergy Verified 04/29/21 22:30 Physical Exam Vitals: Vital Signs Temp Pulse Pulse Pulse Resp BP BP 04/30/21 07:57 97.7 F 77 20 184/102 04/30/21 07:26 90 04/30/21 07:12 04/30/21 07:06 91 04/29/21 23:54 97.6 F 90 21 04/29/21 23:36 87 20 140/97 04/29/21 23:35 102 H 04/29/21 23:09 104 H 04/29/21 22:53 81 19 140/86 04/29/21 22:38 96 30 H 128/78 04/29/21 22:19 84 04/29/21 22:18 101 H 24 142/92 04/29/21 22:10 82 04/29/21 22:09 86 04/29/21 22:01 92 144/100 04/29/21 21:51 96 04/29/21 21:47 80 26 H 140/128 04/29/21 21:32 104 H 25 H 145/102 04/29/21 21:22 27 H 04/29/21 21:19 90 25 H 147/106 04/29/21 21:11 96 24 150/102 04/29/21 20:58 98.7 F 101 H 26 H 157/118 BP Pulse Ox 04/30/21 07:57 99 04/30/21 07:26 04/30/21 07:12 99 04/30/21 07:06 04/29/21 23:54 145/87 98 04/29/21 23:36 98 04/29/21 23:35 04/29/21 23:09 04/29/21 22:53 98 04/29/21 22:38 84 L 04/29/21 22:19 04/29/21 22:18 96 04/29/21 22:10 04/29/21 22:09 04/29/21 22:01 98 04/29/21 21:51 04/29/21 21:47 98 04/29/21 21:32 98 04/29/21 21:22 04/29/21 21:19 98 04/29/21 21:11 97 04/29/21 20:58 92 L Intake and Output 04/29/21 04/30/21 04/30/21 22:59 06:59 14:59 Intake Total 1000 Output Total 550 Balance 450 Intake: Intake, IV Titration 600 Amount Sodium Chloride 0.9% 1, 600 000 ml @ 100 mls/hr IV . Q10H [facility] Rx#:[id number] Oral 400 Output: Urine 550 Other: Weight 81.647 kg 81.647 kg The patient appeared well nourished and normally developed. Vital signs as documented. Head exam is unremarkable. No scleral icterus or corneal arcus noted. Neck is without jugular venous distension, thyromegaly, or carotid bruits. Carotid upstrokes are brisk bilaterally. Lungs are diminished breath sounds bilaterally along with scattered expiratory wheezes throughout the lung [place]. Cardiac exam reveals the PMI to be normally sized and situated. Rhythm is regular. First and second heart sounds normal. No murmurs, rubs or gallops. Abdominal exam reveals normal bowel sounds, no masses, no organomegaly and no aortic enlargement. Extremities are nonedematous and both femoral and pedal pulses are normal.Examination of the skin revealed no evidence of significant rashes, suspicious appearing nevi or other concerning lesions.Neurologically, the patient is awake and alert and the patient does not have any focal neurological deficit. Cranial nerves are essentially intact. Results - Laboratory Findings CBC and BMP: 04/29/21 21:36 04/29/21 21:36 PT/INR, D-dimer PT 10.9 sec (9.0-12.0) 04/29/21 21:36 INR 1.0 (<1.2) 04/29/21 21:36 Abnormal lab findings: Abnormal Labs 04/29/21 04/29/21 21:36 21:36 WBC 12.3 H Eosinophils # 1.1 H Sodium 136 L Chloride 96 L BUN 21 H Glucose 123 H Phosphorus 5.8 H - Diagnostic Findings Chest x-ray: image reviewed Assessment and Plan Plan: 1 acute COPD exacerbation with secondary shortness of breath. No clear indication for pneumonia. He is a chronic smoker. 2 chronic stable COPD with chronic exertional dyspnea 3 chronic A. fib with RVR at the time of admission, current rate is under better control and the patient is receiving any form of long-term anticoagulants. 4 hypertension 5 history of GI bleed 6 smoker Plan No need for BiPAP therapy this can be discontinued Oxygen supplementation to maintain a saturation above 90% Continue DuoNeb neb last treatment [id number] IV Solu Medrol 60 mg every 6 hours Empiric antibiotic coverage smoking cessation counseling Outpatient pulmonary function test We'll continue to follow make further recommendations based on his overall progress.
--- NOTE | 2021-04-30 12:01 | P.CRDCN ---
History of Present Illness History of present illness: HISTORY OF PRESENTING ILLNESS This is a pleasant 60-year-old male past medical history significant for chronic atrial fibrillation not on anticoagulation due to prior GI bleed, hypertension, COPD, chronic nicotine dependence. He follows reguarly with Dr. Cruz. We have been asked to see in consultation for atrial fibrillation. Patient is seen and examined at bedside in no acute distress. He states that he's been short of breath over the past week, progressively getting worse and decided to present to the emergency department. He also complains of a productive cough with green phlegm. He denies chest pain, palpitations, lightheadedness, dizziness, fever, chills, abdominal pain, nausea. He denies any sick contacts at home. Denies any recent travel. EKG revealed atrial fibrillation with rapid ventricular response heart rate 118. Chest x-ray was negative for any acute cardiopulmonary process. CT chest revealed COPD with mild to moderate emphysema and pulmonary arterial hypertension. Some incidental dependent debris/secretions and the jan. Some strandy pleural parenchymal scarring at the lung bases. He states when he was diagnosed with atrial fibrillation Patient had been initiated on oral anticoagulation, but he states that he had a significant drop in hemog lobin, underwent an EGD which discovered a bleeding ulcer and for this reason the anticoagulation at that point in time had been discontinued and he has not been taking it since. Telemetry reviewed, patient continues to be atrial fibrillation with controlled rates. Patient has been hypoxic in the mid BiPAP at night. He denies a diagnosis of obstructive sleep apnea but states that he would like to get a sleep study as an outpatient. Current home medications include metoprolol tartrate 50 mg twice daily, albuterol inhaler, Protonix 40 mg twice a day. He is a chronic smoker. He smokes 1/2 PPD. Denies alcohol or illicit drug use. Denies history of diabetes, [place], or stroke. Echocardiogram 0 03/2020 revealed an EF of 55-60%, mild mitral regurgitation, mild tricuspid regurgitation REVIEW OF SYSTEMS At the time of my exam: CONSTITUTIONAL: Denies fever or chills. CARDIOVASCULAR: +shortness of breath Denies chest pain, orthopnea, PND or palpitations. RESPIRATORY: Denies cough. GASTROINTESTINAL: Denies abdominal pain, diarrhea, constipation, nausea or vomiting. MUSCULOSKELETAL: Denies myalgias. NEUROLOGIC: Denies numbness, tingling, headacbe or weakness. ENDOCRINE: Denies fatigue, weight change, polydipsia or polyurina. GENITOURINARY: Denies burning, hematuria or urgency with micturation. HEMATOLOGIC: Denies history of anemia or bleeding. PHYSICAL EXAMINATION Blood pressure 184/102 heart rate 77 afebrile and maintaining oxygen saturation 99% on 3L nasal cannula CONSTITUTIONAL: No apparent distress. HEENT: Head is normocephalic. Pupils are equal, round. Sclerae anicteric. Mucous membranes of the mouth are moist. No JVD. No carotid bruit. CHEST EXAMINATION: Lungs diminished bilaterally, with expiratory wheezes throughout. HEART EXAMINATION: Irregular rate and rhythm. S1, S2 heard. No murmurs, gallops or rub. ABDOMEN: Soft, nontender. Positive bowel sounds. EXTREMITIES: 2+ peripheral pulses, no lower extremity edema and no calf tenderness. NEUROLOGIC EXAMINATION: Patient is awake, alert and oriented x3. ASSESSMENT Chronic atrial fibrillation, not on anticoagulation due to GI Bleed COPD exacerbation Hypertension Chronic nicotine dependence PLAN Patient continues to be in atrial fibrillation with controlled rates. We will start amlodipine 5 mg daily, increase patient's metoprolol titrate to 50 mg 3 times a day. No further cardiac testing at this time Rest of management per primary and pulmonary Patient to follow up with his primary production editor Dr. Cruz as an outpatient We will follow the patient as needed. Please re-consult if needed. Thank you kindly for this consultation Nurse Practitioner note has been reviewed, I agree with a documented findings and plan of care. Patient was seen and examined. Past Medical History Past Medical History: Atrial Fibrillation, COPD, Hypertension, Osteoarthritis (O A) Additional Past Medical History / Comment(s): gastric ulcers, GI bleed History of Any Multi-Drug Resistant Organisms: None Reported Past Surgical History: Orthopedic Surgery Additional Past Surgical History / Comment(s): bilateral hip replacement Past Anesthesia/Blood Transfusion Reactions: No Reported Reaction Past Psychological History: No Psychological Hx Reported Smoking Status: Current every day smoker Past Alcohol Use History: Daily Past Drug Use History: None Reported Medications and Allergies Home Medications Medication Instructions Recorded Confirmed Type Albuterol Inhaler [Ventolin Hfa 2 puff INHALATION RT-QID PRN #1 03/26/20 04/29/21 Rx Inhaler] inhaler Metoprolol Tartrate [Lopressor] 50 mg PO BID 04/29/21 04/29/21 History Pantoprazole [Protonix] 40 mg PO BID 04/29/21 04/29/21 History Allergies Allergy/AdvReac Type Severity Reaction Status Date / Time No Known Allergies Allergy Verified 04/29/21 22:30 Physical Exam Vitals: Vital Signs Temp Pulse Pulse Resp BP BP Pulse Ox 04/30/21 07:12 99 04/30/21 07:06 91 04/29/21 23:54 97.6 F 90 21 145/87 98 04/29/21 23:36 87 20 140/97 98 04/29/21 23:35 102 H 04/29/21 23:09 104 H 04/29/21 22:53 81 19 140/86 98 04/29/21 22:38 96 30 H 128/78 84 L 04/29/21 22:19 84 04/29/21 22:18 101 H 24 142/92 96 04/29/21 22:10 82 04/29/21 22:09 86 04/29/21 22:01 92 144/100 98 04/29/21 21:51 96 04/29/21 21:47 80 26 H 140/128 98 04/29/21 21:32 104 H 25 H 145/102 98 04/29/21 21:22 27 H 04/29/21 21:19 90 25 H 147/106 98 04/29/21 21:11 96 24 150/102 97 04/29/21 20:58 98.7 F 101 H 26 H 157/118 92 L Intake and Output 04/29/21 04/30/21 04/30/21 22:59 06:59 14:59 Intake Total 1000 Output Total 550 Balance 450 Intake: Intake, IV Titration 600 Amount Sodium Chloride 0.9% 1, 600 000 ml @ 100 mls/hr IV . Q10H [facility] Rx#:[id number] Oral 400 Output: Urine 550 Other: Weight 81.647 kg 81.647 kg Results 04/29/21 21:36 04/29/21 21:36 Cardiac Enzymes 04/29/21 04/29/21 Range/Units 21:36 21:36 AST 37 (17-59) U/L Troponin I <0.012 (0.000-0.034) ng/mL Coagulation 04/29/21 Range/Units 21:36 PT 10.9 (9.0-12.0) sec APTT 24.6 (22.0-30.0) sec CBC 04/29/21 Range/Units 21:36 WBC 12.3 H (3.8-10.6) k/uL RBC 4.66 (4.30-5.90) m/uL Hgb 15.1 (13.0-17.5) gm/dL Hct 44.8 (39.0-53.0) % Plt Count 249 (150-450) k/uL Comprehensive Metabolic Panel 04/29/21 Range/Units 21:36 Sodium 136 L (137-145) mmol/L Potassium 4.0 (3.5-5.1) mmol/L Chloride 96 L (98-107) mmol/L Carbon Dioxide 29 (22-30) mmol/L BUN 21 H (9-20) mg/dL Creatinine 0.77 (0.66-1.25) mg/dL Glucose 123 H (74-99) mg/dL Calcium 9.3 (8.4-10.2) mg/dL AST 37 (17-59) U/L ALT 21 (4-49) U/L Alkaline Phosphatase 81 (38-126) U/L Total Protein 7.1 (6.3-8.2) g/dL Albumin 4.4 (3.5-5.0) g/dL Current Medications Generic Name Dose Route Start Last Admin Trade Name Freq PRN Reason Stop Dose Admin Albuterol Sulfate 5 mg 04/30/21 08:00 04/30/21 07:06 Albuterol Nebulized 2.5 Mg/3 Ml INHALATION 5 mg RT-QID [facility] Administration Albuterol/Ipratropium 3 ml 04/29/21 22:57 Ipratropium-Albuterol 3 Ml Neb INHALATION RT-Q4H PRN Shortness Of Breath Or Wheezing Sodium Chloride 1,000 mls @ 100 mls/hr 04/29/21 23:00 04/30/21 07:06 Saline 0.9% IV 100 mls/hr .Q10H [facility] Administration Lorazepam 1 mg 04/29/21 22:58 Lorazepam 2 Mg/Ml Inj IV Q4HR PRN Anxiety Methylprednisolone Sodium Succinate 60 mg 04/30/21 00:00 04/30/21 05:11 Methylprednisolone Sod Succi 125 Mg/2 Ml Vial IV 60 mg Q6HR [facility] Administration Metoprolol Tartrate 50 mg 04/30/21 09:00 04/30/21 07:05 Metoprolol Tartrate 50 Mg Tab PO 50 mg BID [facility] Administration Miscellaneous Information 1 each 04/30/21 01:16 Rx Info: Iv Contrast Was Given 1 Each Misc MISCELLANE 05/02/21 01:16 DAILY PRN Per Protocol Morphine Sulfate 4 mg 04/29/21 22:58 Morphine Sulfate 4 Mg/Ml Syringe IVP Q4HR PRN Pain Pantoprazole Sodium 40 mg 04/30/21 09:00 04/30/21 07:06 Pantoprazole 40 Mg Tablet PO 40 mg BID HARITHA Administration Intake and Output 04/29/21 04/30/21 04/30/21 22:59 06:59 14:59 Intake Total 1000 Output Total 550 Balance 450 Intake: Intake, IV Titration 600 Amount Sodium Chloride 0.9% 1, 600 000 ml @ 100 mls/hr IV . Q10H [facility] Rx#:[id number] Oral 400 Output: Urine 550 Other: Weight 81.647 kg 81.647 kg 04/29/21 21:36 04/29/21 21:36
--- NOTE | 2021-04-30 12:02 | ECHOF ---
Referral Reason:LV function MEASUREMENTS -------- HEIGHT: 180.3 cm WEIGHT: 81.6 kg BP: RVIDd: 2.7 cm (< 3.3) IVSd: 1.1 cm (0.6 - 1.1) LVIDd: 4.3 cm (3.9 - 5.3) LVPWd: 1.4 cm (0.6 - 1.1) IVSs: 1.6 cm LVIDs: 3.4 cm LVPWs: 1.7 cm Ao Diam: 3.3 cm (2.0 - 3.7) AV Cusp: 1.5 cm (1.5 - 2.6) LA Diam: 3.5 cm (2.7 - 3.8) RAP: 5.00 mmHg RVSP: 31.05 mmHg FINDINGS -------- This was a technically difficult study with suboptimal views. The left ventricular size is normal. There is mild concentric left ventricular hypertrophy. Overa ll left ventricular systolic function is mildly impaired with, an EF between 45 - 50 %. The right ventricle is normal in size. The left atrial size is normal. The right atrial size is normal. Lumason used Unable to visualize the septum. The aortic valve is trileaflet and appears structurally normal. The mitral valve is normal. There is trace mitral regurgitation. The tricuspid valve appears structurally normal. Trace tricuspid regurgitation present. Right gene tricular systolic pressure is normal at < 35 mmHg. There is no pulmonic regurgitation present. The aortic root size is normal. IVC Not well visulized. There is no pericardial effusion. CONCLUSIONS -------- 1. The left ventricular size is normal. 2. There is mild concentric left ventricular hypertrophy. 3. Overall left ventricular systolic function is mildly impaired with, an EF between 45 - 50 %. 4. There is trace mitral regurgitation. 5. Trace tricuspid regurgitation present. 6. There is no pericardial effusion. FITNESS MANAGER: Kerry Johnson RDCS
[2021-04-30] MEDS: METOPROLOL TARTRATE 50 MG TAB PO SCH ×2 (16:59→20:40)
[2021-04-30] MEDS: IPRATROPIUM-ALBUTEROL 3 ML NEB INHALATION PRN (19:53)
[2021-05-01] MEDS: methylPREDNISolone SOD SUCCI 125 MG/2 ML VIAL IV SCH ×3 (00:21→11:27)
[2021-05-01] MEDS: SODIUM CHLORIDE 0.9% 1,000 ML IV SCH (05:40)
[2021-05-01] MEDS: PANTOPRAZOLE 40 MG TABLET PO SCH (07:00)
[2021-05-01] MEDS: METOPROLOL TARTRATE 50 MG TAB PO SCH (07:00)
[2021-05-01] MEDS: AZITHROMYCIN 500 MG TAB PO SCH (07:00)
[2021-05-01] MEDS: amLODIPine 5 MG TAB PO SCH (07:00)
[2021-05-01] MEDS: IPRATROPIUM-ALBUTEROL 3 ML NEB INHALATION PRN (08:42)
[2021-05-01] MEDS: ALBUTEROL NEBULIZED 2.5 MG/3 ML INHALATION SCH ×2 (08:48→12:02)
[2021-05-01] MEDS ORDERED: buPROPion XL 150 MG TAB.ER.24H PO SCH (11:45)
--- NOTE | 2021-05-01 12:38 | P.PN ---
Subjective Progress Note Date: 05/01/21 Principal diagnosis: Shortness of breath, acute hypoxic respiratory failure 58-year-old male patient with known history of COPD continues to smoke 1 pack of cigarettes a day. He was hospitalized approximately year ago for COPD exacerbation the patient is coming in for essentially the same. Over the past 1 year, the patient continues to smoke cigarettes on half to 1 pack of cigarettes a day. He was using Ventolin rescue inhaler on an as-needed basis and he uses albuterol nebulized treatments when necessary. No other maintenance respiratory medications or inhalers. He came into the hospital because of worsening shortness of breath. With the recent change in heat and humidity, he was feeling more short of breath. No significant sputum production. No angina. No palpitations. No swelling lower extremities. No difficulties. No pulmonary embolism. The patient came in the hospital for that reason. He was found to be quite short of breath. The computed tomography scan of the chest was done that showed no evidence of any pulmonary embolism. There is background COPD. No evidence of any pneumonia or pulmonary infiltration. He is known to have chronic atrial fibrillation. He is not receiving anticoagulation. He has a previous history of GI bleed and since then he has not taken any form of anticoagulants regarding his chronic atrial fibrillation. For now, there is no evidence of any GI bleed. Hemoglobin stable at 15.5. No leukocytosis. Troponins negative. No EKG changes or abnormalities. Normal renal function. Note that the patient was initially placed on BiPAP for increased shortness of breath. He was in atrial fibrillation with rapid ventricular response at a time of admission and his current rate is under better control. He is currently off BiPAP and is currently on oxygen at 3 L with a pulse ox of 99%. He is afebrile. On 05/01/2021 patient seen in follow-up on medical surgical floor. He states his breathing is significantly improved since admission, he did not require BiPAP support last night, room air pulse ox today is 92%, his been afebrile, hemodynamically stable, breathing much easier, lung sounds reveal diminished breath sounds, minimal wheezing, no significant phlegm production, no complaints of chest discomfort. No acute events overnight, patient has been treated with IV steroids and nebulized bronchodilators and antibiotics. Tolerating ambulation. He would like to go home today. Remains in atrial fibrillation, cardiology evaluated the patient, please refer to their consultation note. Objective - Vital Signs Vital signs: Vital Signs Temp 97.5 F L 05/01/21 07:28 Pulse 87 05/01/21 12:13 Resp 19 05/01/21 07:28 BP 161/66 05/01/21 07:28 Pulse Ox 92 L 05/01/21 07:28 Intake & Output 04/30/21 05/01/21 05/01/21 18:59 06:59 18:59 Other: Voiding Method Toilet Toilet # Voids 3 2 - Exam GENERAL EXAM: Alert, active, comfortable in no apparent distress. HEAD: Normocephalic/atraumatic. EYES: Normal reaction of pupils, equal size. Conjunctiva pink, sclera white. NOSE: Clear with pink turbinates. THROAT: No erythema or exudates. NECK: No masses, no JVD, no thyroid enlargement, no adenopathy. CHEST: No chest wall deformity. Symmetrical expansion. LUNGS: Equal air entry with minimal wheezes CVS: Regular rate and rhythm, normal S1 and S2, no gallops, no murmurs, no rubs ABDOMEN: Soft, nontender. No hepatosplenomegaly, normal bowel sounds, no guarding or rigidity. EXTREMITIES: No clubbing, no edema, no cyanosis, 2+ pulses and upper and lower extremities. MUSCULOSKELETAL: Muscle strength and tone normal. SPINE: No scoliosis or deformity SKIN: No rashes CENTRAL NERVOUS SYSTEM: Alert and oriented -3. No focal deficits, tone is normal in all 4 extremities. PSYCHIATRIC: Alert and oriented -3. Appropriate affect. Intact judgment and insight. - Labs CBC & Chem 7: 04/29/21 21:36 04/29/21 21:36 Assessment and Plan Plan: Assessment: 1 acute COPD exacerbation with secondary shortness of breath. No clear indication for pneumonia. He is a chronic smoker. 2 chronic stable COPD with chronic exertional dyspnea 3 chronic A. fib with RVR at the time of admission, current rate is under better control and the patient is receiving any form of long-term anticoagulants. 4 hypertension 5 history of GI bleed 6 smoker Plan: Clinically patient has significantly improved since admission He is on room air, not require BiPAP support last night Breathing much easier he would like to go home today Stable for discharge from pulmonary perspective We recommended Anoro Ellipta inhaler upon discharge however his insurance does not cover it Patient will go home on Spiriva, and Symbicort and albuterol rescue inhaler at discharge Complete prednisone taper Outpatient follow-up with Dr. Kang in the office in 7-10 days I performed a history & physical examination of the patient and discussed their management with my nurse practitioner, Gema Moreira. I reviewed the nurse practitioner's note and agree with the documented findings and plan of care. Lung sounds are positive for diminished breath sounds. The findings and the impression was discussed with the patient. I attest to the documentation by the nurse practitioner. Time with Patient: Less than 30
[2021-05-01 13:46] VITALS: BP 159/82; PULSE 54; RESP 18; TEMP 97.8
--- NOTE | 2021-05-01 14:07 | P.DS ---
Providers Date of admission: 04/29/21 22:57 Expected date of discharge: 05/01/21 Attending physician: Gael Draper MD Consults: 04/29/21 22:57 Consult Physician Routine Consulting Provider: Temi Zapien Consult Reason/Comments: afib Do you want consulting provider notified?: Yes Consult Physician Routine Consulting Provider: Nila Kang Consult Reason/Comments: copd Do you want consulting provider notified?: Yes Primary care physician: Zackary Krause DO Hospital Course: Patient is a 58-year-old male with a PMH of A. fib not on anticoagulation and COPD who presented to the emergency room with complaints of shortness of breath. The patient reports that his breathing of gradually worsening over the past week and became so bad that he decided to come to the emergency room. He reports his chronic cough, now worse than usual, with greenish phlegm. He denied chest pain, nausea, vomiting, or leg pain. Denied fever, chills, abdominal pain, diarrhea. Denied recent travel or prolonged immobilization. Reports that this feels similar to his prior COPD exacerbations. In the emergency room a chest x-ray was unremarkable. EKG showing A. fib with RVR 118 bpm. Laboratory evaluation was remarkable for leukocytosis of 12.3, sodium 136, chloride 96, BUN 21, glucose 123, and creatinine less than 0.012. Acute COPD exacerbation Nicotine Abuse Disorder Patient was admitted for COPD exacerbation and initially required BIPAP but was quickly weaned to NC. Pulmonary medicine consulted and facilitated management. After 24 hours of steroids, nebulizers, and azithromycin, patient returned to room air and was able to ambulate in the room and hallways without dyspnea on exertion. Pt was counciled extensively on nicotine cessation. Regarding his COPD - he was discharged on steroid taper, azithromycin 500mg x1 for total of 3 days, as well as new prescriptions for: albuterol PRN, spiriva, symbicort. For nicotine cessation, he was prescribed wellbutrin 150mg XL, and asked to car pick up driver nicotine 4mg PRN mini-lozenges upon discharge. Pt will follow up with PCP and Pulmonary medicine. Permanent AFib, rate controlled, not on AC Patient was seen by cardiology for AFib, rate controlled. He had his metoprolol increased to 50mg TID. I addressed with him his history of GI Bleed and AFib; his stroke risk was high enough to warrant blood thinner, but weighed against history of bleed, it is reasonable for him to not be on blood thinner. HAS-BLED score is 1 points; CHADS-VASc score is 1. For now, I recommended he start eliquis and address this with his outpatient field automobile adjuster. We provided a coupon for Eliquis on discharge. I spent 35 minutes coordinating this complex discharge. Assessment: Gen: awake, alert HEENT: normocephalic, atraumatic, good hearing acuity, moist mucous membranes Resp: moderate air exchange, breathing comfortably with no accessory muscle use, barrel chest, clear to auscultation with no wheezes CVS: good distal perfusion x 4, irregular rhythm, regular rate, no murmurs. GI: soft, NTTP, ND : no SPT, no CVAT, lazcano catheter not present MSK: no pitting edema, no clubbing Neuro: non-focal, moving all extremities Psych: cooperative, euthymic mood Patient Condition at Discharge: Good Plan - Discharge Summary Discharge Rx Participant: Yes New Discharge Prescriptions: New predniSONE 1 mg PO DIRECTED 16 Days #40 tab Tiotropium 18 Mcg/Puff [Spiriva] 1 puff INHALATION DAILY 30 Days #1 device Albuterol Inhaler [Ventolin Hfa Inhaler] 2 puff INHALATION RT-QID 30 Days #1 puff amLODIPine [Norvasc] 5 mg PO DAILY #30 tab buPROPion XL [Wellbutrin XL] 150 mg PO DAILY #30 tab.er.24h Budesonide/Formoterol Fumarate [Symbicort 160-4.5 Mcg Inhaler] 2 puff INHALATION BID 30 Days #1 inhaler Apixaban [Eliquis] 5 mg PO BID #60 tab Azithromycin [Zithromax] 500 mg PO DAILY #1 tab Continue Metoprolol Tartrate [Lopressor] 50 mg PO BID Pantoprazole [Protonix] 40 mg PO BID Discontinued Albuterol Inhaler [Ventolin Hfa Inhaler] 2 puff INHALATION RT-QID PRN #1 inhaler PRN Reason: Shortness Of Breath Or Wheezing Discharge Medication List Metoprolol Tartrate [Lopressor] 50 mg PO BID 04/29/21 [History] Pantoprazole [Protonix] 40 mg PO BID 04/29/21 [History] Albuterol Inhaler [Ventolin Hfa Inhaler] 2 puff INHALATION RT-QID 30 Days #1 puff 05/01/21 [Rx] Apixaban [Eliquis] 5 mg PO BID #60 tab 05/01/21 [Rx] Azithromycin [Zithromax] 500 mg PO DAILY #1 tab 05/01/21 [Rx] Budesonide/Formoterol Fumarate [Symbicort 160-4.5 Mcg Inhaler] 2 puff INHALATION BID 30 Days #1 inhaler 05/01/21 [Rx] Tiotropium 18 Mcg/Puff [Spiriva] 1 puff INHALATION DAILY 30 Days #1 device 05/01/21 [Rx] amLODIPine [Norvasc] 5 mg PO DAILY #30 tab 05/01/21 [Rx] buPROPion XL [Wellbutrin XL] 150 mg PO DAILY #30 tab.er.24h 05/01/21 [Rx] predniSONE 1 mg PO DIRECTED 16 Days #40 tab 05/01/21 [Rx] Follow up Appointment(s)/Referral(s): Zackary Krause DO [Primary Care Provider] - 1-2 days (Office closed, please call and make an appointment) Nila Kang MD [STAFF PHYSICIAN] - 06/03/21 9:45 am Patient Instructions/Handouts: A-fib (Atrial Fibrillation) (GEN), COPD (Chronic Obstructive Pulmonary Disease) (GEN) Discharge Disposition: HOME SELF-CARE
== END 2021-05-01 14:26 | disposition home or self-care (01) | DRG 190 ==
LOC: EC 20:54 → 4SSUR 22:57
PROVIDERS: ADMIT Internal Medicine; ATTEND Internal Medicine
PROC: 5A09457 Assistance with Respiratory Ventilation, 24-96 Consecutive Hours, Continuous Positive Airway Pressure (ICD-10-PCS; principal; 2021-04-29)
DX: J44.1 Chronic obstructive pulmonary disease with (acute) exacerbation (principal); J96.01 Acute respiratory failure with hypoxia; I48.21 Permanent atrial fibrillation; Z96.643 Presence of artificial hip joint, bilateral; M19.90 Unspecified osteoarthritis, unspecified site; F17.210 Nicotine dependence, cigarettes, uncomplicated; E66.9 Obesity, unspecified; J43.9 Emphysema, unspecified; I27.21 Secondary pulmonary arterial hypertension; I25.10 Atherosclerotic heart disease of native coronary artery without angina pectoris; I11.0 Hypertensive heart disease with heart failure; D72.829 Elevated white blood cell count, unspecified; I50.9 Heart failure, unspecified; Z87.19 Personal history of other diseases of the digestive system; Z68.25 Body mass index [BMI] 25.0-25.9, adult; Z87.11 Personal history of peptic ulcer disease; Z79.899 Other long term (current) drug therapy
CPT/HCPCS: 36415; 71045; 71260; 80053; 83605; 83735; 84100; 84484; 85025; 85610; 85730; 93005; 93306; 94640; 94660; 94760; 99291

== ENCOUNTER 2024-11-10 04:38 | Emergency (ER) | payer MEDICARE, OTHER ==
--- NOTE | 2024-11-10 05:23 | ED ---
Neck Injury/Pain HPI - General Chief Complaint: Neck Pain/Injury Stated Complaint: Neck Pain Time Seen by Provider: 11/10/24 05:08 Mode of arrival: ambulatory Limitations: no limitations - History of Present Illness Initial Comments: This patient is a 64-year-old man who presents with flareup of neck pain tonight that has been bothering him going back a couple of months now. The patient indicates the area from the base of the skull down into the shoulders and indicates it is bilateral. He patient states that the pain is worse when he tries to turn his head. He did not have any acute trauma tonight. No fever or chills. MD Complaint: neck pain Onset/Timin -: month(s) Place: home Radiation: right lateral, left lateral Severity: severe Quality: sharp, aching Consistency: constant Improves With: immobilization Worsens With: swallowing Associated Symptoms: headache - Related Data Home Medications Medication Instructions Recorded Confirmed Metoprolol Tartrate [Lopressor] 50 mg PO BID 04/29/21 12/19/23 Pantoprazole [Protonix] 40 mg PO BID 04/29/21 12/19/23 Budesonide/Formoterol Fumarate 2 puff INHALATION RT-BID 12/19/23 12/19/23 [Symbicort 160-4.5 Mcg Inhaler] Previous Rx's Medication Instructions Recorded Apixaban [Eliquis] 5 mg PO BID #60 tab 05/01/21 amLODIPine [Norvasc] 5 mg PO DAILY #30 tab 05/01/21 buPROPion XL [Wellbutrin XL] 150 mg PO DAILY #30 tab.er.24h 05/01/21 methocarbamoL [Robaxin-750] 1,500 mg PO TID PRN #42 tab 11/10/24 Allergies Allergy/AdvReac Type Severity Reaction Status Date / Time No Known Allergies Allergy Verified 11/10/24 04:42 Review of Systems ROS Statement: Those systems with pertinent positive or pertinent negative responses have been documented in the HPI. ROS Other: All systems not noted in ROS Statement are negative. Constitutional: Denies: fever, chills, weakness Eyes: Denies: vision change Respiratory: Denies: cough, dyspnea Cardiovascular: Denies: chest pain Gastrointestinal: Denies: abdominal pain, nausea, vomiting Musculoskeletal: Reports: as per HPI Skin: Denies: rash Neurological: Reports: headache. Denies: weakness, numbness Past Medical History Past Medical History: Atrial Fibrillation, COPD, GI Bleed, Hypertension, Osteoarthritis (OA) Additional Past Medical History / Comment(s): gastric ulcers, GI bleed, enlarged prostate History of Any Multi-Drug Resistant Organisms: None Reported Past Surgical History: Orthopedic Surgery Additional Past Surgical History / Comment(s): bilateral hip replacement Past Anesthesia/Blood Transfusion Reactions: No Reported Reaction Past Psychological History: No Psychological Hx Reported Smoking Status: Current every day smoker Past Alcohol Use History: Daily Past Drug Use History: None Reported General Exam Limitations: no limitations General appearance: alert, in no apparent distress Head exam: Present: atraumatic, normocephalic Eye exam: Present: normal appearance. Absent: scleral icterus, conjunctival inj ection Neck exam: Present: tenderness, other (Patient does have tenderness from the base of the skull to the mid cervical bilaterally in the muscles. There is decreased rotation bilaterally). Absent: meningismus, full ROM Respiratory exam: Present: normal lung sounds bilaterally. Absent: respiratory distress, wheezes, rales, rhonchi, stridor, accessory muscle use Cardiovascular Exam: Present: normal rhythm, bradycardia, normal heart sounds. Absent: systolic murmur, diastolic murmur, rubs, gallop Back exam: Present: paraspinal tenderness (As above). Absent: CVA tenderness (R), CVA tenderness (L), vertebral tenderness Neurological exam: Present: alert. Absent: motor sensory deficit Skin exam: Present: warm, dry, intact, normal color. Absent: rash Course Vital Signs 11/10/24 11/10/24 04:42 07:20 Temperature 98.3 F 98.4 F Pulse Rate 49 L 53 L Respiratory 16 18 Rate Blood Pressure 127/66 132/67 O2 Sat by Pulse 96 98 Oximetry Medical Decision Making - Medical Decision Making CT of the cervical spine obtained which does not reveal evidence of pathologic fracture or subluxation Was pt. sent in by a medical professional or institution (ROSALINA Garcia, GROUP TESTER, urgent care, hospital, or custodial...) When possible be specific @ -[No] Did you speak to anyone other than the patient for history (EMS, parent, family, police, friend...)? What history was obtained from this source @ -[No] Did you review nursing and triage notes (agree or disagree)? Why? @ -[I reviewed and agree with nursing and triage notes] Were old charts reviewed (outside hosp., previous admission, EMS record, old EKG, old radiological studies, urgent care reports/EKG's, custodial records)? Report findings @ -[No old charts were reviewed] Differential Diagnosis (chest pain, altered mental status, abdominal pain women, abdominal pain men, vaginal bleeding, weakness, fever, dyspnea, syncope, headache, dizziness, GI bleed, back pain, seizure, CVA, palpatations, mental health, musculoskeletal)? @ -[MDM musculoskeletal EKG interpreted by me (3pts min.). @ -[As above] X-rays interpreted by me (1pt min.). @ -[None done] CT interpreted by me (1pt min.). @ -[I interpreted as above U/S interpreted by me (1pt. min.). @ -[None done] What testing was considered but not performed or refused? (CT, X-rays, U/S, labs)? Why? @ -[None] What meds were considered but not given or refused? Why? @ -[None] Did you discuss the management of the patient with other professionals (professionals i.e. , PA, GROUP TESTER, lab, RT, psych nurse, social work therapist, groundskeeping yardman, teacher, postal delivery officer, classification case manager)? Give summary @ -[No] Was smoking cessation discussed for >3mins.? @ -[No] Was critical care preformed (if so, how long)? @ -[No] Were there social determinants of health that impacted care today? How? (Homelessness, low income, unemployed, alcoholism, drug addiction, transportation, low edu. Level, literacy, decrease access to med. care, longterm, rehab)? @ -[No] Was there de-escalation of care discussed even if they declined (Discuss DNR or withdrawal of care, Hospice)? DNR status @ -[No] What co-morbidities impacted this encounter? (DM, HTN, Smoking, COPD, CAD, Cancer, CVA, ARF, Chemo, Hep., AIDS, mental health diagnosis, sleep apnea, morbid obesity)? @ -[None] Was patient admitted / discharged? Hospital course, mention meds given and route, prescriptions, significant lab abnormalities, going to OR and other pertinent info. @ -[The patient is 64-year-old man here to have evaluation of neck pain. Given the duration patient's age and of the pain and the severity tonight, CT scan is obtained to rule out pathologic fracture. The patient did have significant relief of symptoms with medication here and at this point stable to have further evaluation and treatment as outpatient Undiagnosed new problem with uncertain prognosis? @ -[No] Drug Therapy requiring intensive monitoring for toxicity (Heparin, Nitro, Insulin, Cardizem)? @ -[No] Were any procedures done? @ -[No] Diagnosis/symptom? @ -[Neck pain Acute, or Chronic, or Acute on Chronic? @ -[Acute on chronic Uncomplicated (without systemic symptoms) or Complicated (systemic symptoms)? @ -[Uncomplicated Side effects of treatment? @ -[No] Exacerbation, Progression, or Severe Exacerbation? @ -[No] Poses a threat to life or bodily function? How? (Chest pain, [place], [place], pneumonia, PE, COPD, DKA, ARF, appy, cholecystitis, CVA, Diverticulitis, Homicidal, Suicidal, threat to staff... and all critical care pts) @ -[No] All treatments are based on ideal body weight as in ED triage Disposition Clinical Impression: Cervical pain (neck) Disposition: HOME SELF-CARE Condition: Good Instructions (If sedation given, give patient instructions): Cervical Strain (ED) Prescriptions: methocarbamoL [Robaxin-750] 1,500 mg PO TID PRN #42 tab PRN Reason: Pain Is patient prescribed a controlled substance at d/c from ED?: No Referrals: None,Stated [Primary Care Provider] - 1-2 days Seven Martinez DO [Doctor of Osteopathic Medicine] - 1-2 days
[2024-11-10] MEDS: ORPHENADRINE 30 MG/ML 2 ML VIAL IM STA (05:44)
[2024-11-10] MEDS: KETOROLAC 15 MG/ML 1 ML VIAL IM STA (05:44)
--- NOTE | 2024-11-10 06:42 | CT ---
EXAM: CT Cervical Spine Without Intravenous Contrast CLINICAL HISTORY: ITS.REASON CT Reason: low cervical pain TECHNIQUE: Axial computed tomography images of the cervical spine without intravenous contrast. CTDI is 9.2 mGy and DLP is 262.4 mGy-cm. This CT exam was performed using one or more of the following dose reduction techniques: automated exposure control, adjustment of the mA and/or kV according to patient size, and/or use of iterative reconstruction technique. COMPARISON: No relevant prior studies available. FINDINGS: Vertebrae: No evidence of acutely displaced fracture or dislocation within the cervical spine. Consider MRI there is further concern. Loss of cervical lordosis. Degenerative changes in the cervical spine noted including loss of disc space height, osteophyte formation, uncovertebral hypertrophy, and facet arthropathy. Soft tissues: Unremarkable. Vasculature: Atherosclerotic disease. Esophagus: Esophageal thickening which may be inflammatory in nature. Lung apices: Partially visualized centrilobular and paraseptal emphysema. Patient may qualify for low-dose lung cancer screening CTs. IMPRESSION: 1. No evidence of acutely displaced fracture or dislocation within the cervical spine. Consider MRI there is further concern. 2. Partially visualized centrilobular and paraseptal emphysema. Patient may qualify for low-dose lung cancer screening CTs. 3. Degenerative changes.
[2024-11-10 07:22] VITALS: BP 132/67; PULSE 53; RESP 18; TEMP 98.4
== END 2024-11-10 07:22 | disposition home or self-care (01) ==
LOC: EC 04:38
DX: M54.2 Cervicalgia (principal); F17.200 Nicotine dependence, unspecified, uncomplicated
CPT/HCPCS: 99284 ×2; 96372 ×2; 72125; J2360; J1885